=== PATIENT | female | born 1955 | race Caucasian/White ===

== ENCOUNTER 2024-09-16 21:32 | Inpatient (IN) | payer MEDICARE, MEDICAID, SELFPAY ==
--- OUTSIDE RECORDS SUMMARY | 2024-02-01 09:15 | XMS_ITS ---
Author Organization [facility] Address [address] [place] [id number] Care Team Providers Care Pad Making Machine Operator Name Role Phone Eli Dale Primary Care Provider Fern Quach Unavailable [phone] REASON FOR VISIT 3 month f/u HTN Social History Sex Assigned At : Social History Observation Description Sex Assigned At Female Encounters Encounter Location Date Provider Diagnosis Main [address] [place], [place] [id number] 02/01/2024 Eli Dale Plan Of Treatment Next Appt Details Provider Name:Amelia Boykin sg, 09/25/2024 03:00:00 PM, [address] [place] [address], [phone], Progress Notes * CATHERINE ElviahDOB: [birth year] (68 yo F)Acc No.[id number]:02/01/2024 Medical Note Patient: Dana AMES Provider: JULIA Mcwilliams :1955 A ge:68 Y S ex:Female Date:02/01/2024 Phone: Address:[address] [place], [place] [phone] Subjective: * Chief Complaints: * 1 . 3 month f/u HTN. * Medical History: Objective: * Vitals: Assessment: Plan: * Treatment: * Billing Information: * Visit Code: * Procedure Codes: * Electronic signature of JULIA Mcduffie on 09/18/2024 at 07:56 AM EDT Sign off status: Pending * Provider: JULIA Mcwilliams Date: 1 04/03/2023 Generated for Ventura benjamin/Haley/Ileneitting on: 0 09/18/2024 07:56 AM EDT
--- OUTSIDE RECORDS SUMMARY | 2024-02-14 08:45 | XMS_ITS ---
Author Organization [facility] Address [address] [place] [phone] Care Team Providers Care Sap Bw Architect Name Role Phone Eli Dale Primary Care Provider [phone] Fern Quach Unavailable [phone] Amelia Bautista Unavailable [phone] REASON FOR VISIT Rest #18-DO #20-O Social History Sex Assigned At : Social History Observation Description Sex Assigned At Female Encounters Encounter Location Date Provider Diagnosis Dental Main [address] [place] [phone] 02/14/2024 Amelia Bautista Plan Of Treatment Next Appt Details Provider Name:Amelia Boykin ord, 09/25/2024 03:00:00 PM, [address] [place] [address], [id number], Progress Notes * CATHERINE PamwallyhDOB: [birth year] (68 yo F)Acc No.[id number]:02/14/2024 Patient: Dana AMES Provider: Karen Bautista DDS :1955 A ge:68 Y S ex:Female Date:02/14/2024 Phone: Address:[address] [place] [phone] Pcp:Eli Dale Subjective: * Chief Complaints: * 1 . Rest #18-DO #20-O. * Medical History: Objective: * Vitals: Assessment: Plan: * Treatment: * Billing Information: * Visit Code: * Procedure Codes: * Electronic signature of Makayla Bautista DDS on 09/18/2024 at 07:56 AM EDT Sign off status: Pending * Provider: Karen Bautista DDS Date: 1 04/16/2023 Generated for Ventura benjamin/Haley/Kirt on: 0 09/18/2024 07:56 AM EDT
--- OUTSIDE RECORDS SUMMARY | 2024-04-03 06:15 | XMS_ITS ---
Author Organization [facility] Address [address] [place] [phone] Care Team Providers Care Notcher Name Role Phone Eli Dale Primary Care Provider Fern Quach Unavailable [phone] Amelia Bautista Unavailable [phone] REASON FOR VISIT Rest #18-DO, #20-O Social History Sex Assigned At : Social History Observation Description Sex Assigned At Female Encounters Encounter Location Date Provider Diagnosis Dental Main [address] [place] [phone] 04/03/2024 Amelia Bautista Plan Of Treatment Next Appt Details Provider Name:Amelia Boykin ord, 09/25/2024 03:00:00 PM, [address] [place] [address], [phone], Progress Notes * Elvia ALEXANDERhDOB: [birth year] (68 yo F)Acc No.[id number]:04/03/2024 Patient: Elvia AMESh Provider: Karen Bautista DDS :1955 A ge:68 Y S ex:Female Date:04/03/2024 Phone: Address:[address] [place] [phone] Pcp:Eli Dale Subjective: * Chief Complaints: * 1 . Rest #18-DO, #20-O. * Medical History: Objective: * Vitals: Assessment: Plan: * Treatment: * Billing Information: * Visit Code: * Procedure Codes: * Electronic signature of Makayla Bautista DDS on 09/18/2024 at 07:56 AM EDT Sign off status: Pending * Provider: Karen Bautista DDS Date: 0 04/03/2024 Generated for Ventura benjamin/Haley/Kirt on: 0 09/18/2024 07:56 AM EDT
[2024-09-16] VITALS (21 sets, daily range): BP systolic 97–163; BP diastolic 72–117; PULSE 65–112; TEMP 36.4; O2SAT 81–100; BMI 39.0
--- NOTE | 2024-09-16 21:55 | ECG_ITS ---
[facility] Test Date: 2024-09-16 Pat Name: LAURA ALEXANDER Department: Room: - Gender: Female Veneer Supervisor: : 1955 Requested By: [id number] Order Number: [id number] Reading MD: LORRAINE SETH M.D. Measurements Intervals Stryker Rate: 73 P: 53 WV: 194 QRS: 64 QRSD: 106 T: 90 QT: 376 QTc: 402 Interpretive Statements 1100 Sinus rhythm 4068 Nonspecific Twave abnormality 8102 Low QRS voltage in chest leads 9130 borderline ECG No previous ECG available for comparison Electronically Signed On 09-18-2024 6:58:23 EDT by LORRAINE SETH M.D.
--- NOTE | 2024-09-16 22:09 | XR_ITS ---
[facility] [place] [id number] Patient Name: LAURA ALEXANDER MRN: [id number] date: 1955 Sex: F Assigned Patient Location: ER Current Patient Location: ER Accession/Order Number: [id number] Exam Date: 09/16/2024 22:28 Report Date: 09/16/2024 22:29 At the request of: JOE YANEZ MD Procedure: XR chest 1V Plain film chest Single view HISTORY: Shortness of breath COMPARISON: None FINDINGS: SUPPORT DEVICES: None POSTSURGICAL CHANGES: None HEART: Cardiomegaly PULMONARY LYLA: Hilar vascular prominence MEDIASTINUM: Unremarkable LUNGS AND PLEURA: Perihilar and basilar groundglass parenchymal density and minimal pleural reactions. BONY STRUCTURES: Intact ADDITIONAL FINDINGS None XR/XR chest 1V IMPRESSION: CHF findings with small pleural effusions Impression dictated by: Javier Michaud M.D. 09/16/2024 10:29 PM Dictation Location: [facility] Electronically authenticated by: [id number] Y Date: 09/16/2024 22:29
--- NOTE | 2024-09-16 22:10 | ED.GENADUL1 ---
HPI HPI - General Adult General Chief complaint: Recheck/Abnormal Lab/Rx Stated complaint: SOB, CHEST PAIN Time Seen by Provider: 09/16/24 21:48 Source: patient Mode of arrival: walk-in Limitations: no limitations History of Present Illness HPI narrative: limited history. Assisted living patient transferred for shortness of breath. History of CHF. RA pulse ox 95%. Patient poor historian. Not in respiratory distress. Ex smoker. Per family she has one lung. Patient is not certain. will need to assisted living called for more information. Additional history. Family stop by and were concern patient appeared short of breath and they brought her in. No chest pain. As above, patient poor historian and not able to assist in the history Related Data Home Medications ?Medication ?Instructions ?Recorded ?Confirmed acetaminophen 500 mg tablet mg 09/16/24 apixaban 5 mg tablet (Eliquis) mg 09/16/24 cholecalciferol (vitamin D3) 50 09/16/24 mcg (2,000 unit) tablet diphenhydramine HCl 25 mg tablet mg 09/16/24 (Banophen) docusate sodium 100 mg capsule mg PO 09/16/24 flecainide 100 mg tablet mg 09/16/24 furosemide 20 mg tablet mg 09/16/24 levothyroxine 50 mcg tablet mcg 09/16/24 magnesium oxide mg 09/16/24 metoprolol succinate 25 mg mg PO 09/16/24 tablet,extended release 24 hr ondansetron HCl 4 mg tablet mg 09/16/24 potassium chloride 20 mEq meq PO 09/16/24 tablet,extended release(part/cryst) prazosin 2 mg capsule mg 09/16/24 risperidone 4 mg tablet mg 09/16/24 valsartan 40 mg tablet mg 09/16/24 venlafaxine 150 mg mg PO 09/16/24 capsule,extended release 24 hr venlafaxine 75 mg capsule,extended mg PO 09/16/24 release 24 hr Allergies Allergy/AdvReac Type Severity Reaction Status Date / Time Sulfa (Sulfonamide Allergy Unknown Verified 09/16/24 21:46 Antibiotics) Review of Systems ROS Status of ROS other (poor historian) [facility] Medical History (Updated 09/17/24 @ 04:01 by Thiago Souza MD) CHF (congestive heart failure) ?I50.9 - Heart failure, unspecified (ICD-10) COPD (chronic obstructive pulmonary disease) ?J44.9 - Chronic obstructive pulmonary disease, unspecified (ICD-10) Exam Constitutional Vital Signs, click to edit/add: Last Vital Signs Temp 97.5 F L 09/16/24 21:37 Pulse 70 09/17/24 02:31 Resp 26 H 09/17/24 02:31 BP 125/66 09/17/24 02:31 Pulse Ox 100 09/17/24 03:29 O2 Del Method Nasal Cannula 09/17/24 00:31 O2 Flow Rate 2 09/17/24 00:31 Common normals: no apparent distress, alert and well nourished HENMT Common normals: normocephalic and head/scalp atraumatic Eye Common normals: EOMs intact bilaterally and conjunctivae normal Respiratory Common normals: normal respiratory effort, no use of accessory muscles and clear to auscultation bilaterally Cardio Common normals: regular rate, regular rhythm, S1 normal heart sound and S2 normal heart sound GI Common normals: Normal to inspection, nondistended, normoactive bowel sounds present, soft to palpation and non-tender Extremity Common normals: normal to inspection and full ROM Neuro Common normals: oriented x3, CN's II-XII intact bilaterally, moves all extremities and no focal motor deficits Psych Appearance: grossly normal Course Vital Signs Vital signs: Vital Signs Temperature 97.5 F L 09/16/24 21:37 Pulse Rate 75 09/16/24 21:37 Respiratory Rate 18 09/16/24 21:37 Blood Pressure 163/117 H 09/16/24 21:37 Pulse Oximetry 97 09/16/24 21:37 Oxygen Delivery Method Room Air 09/16/24 21:37 Temperature 97.5 F L 09/16/24 21:37 Pulse Rate 70 09/17/24 02:31 Respiratory Rate 26 H 09/17/24 02:31 Blood Pressure 125/66 09/17/24 02:31 Pulse Oximetry 100 09/17/24 03:29 Oxygen Delivery Method Nasal Cannula 09/17/24 00:31 Oxygen Delivery Flow Rate 2 09/17/24 00:31 Medical Decision Making MDM Narrative Medical decision making narrative: patient has past history of CHF and is ex smoker. family concerned she was short of breath and brought her to the ER. Chest clear on exam. Troponin and BNP normal. Cxray per radiologist interpretation with finding of CHF. CT chest returned with findings enlarged heart size and mild interstitial edema. Exercise pulse ox 89% and when patient returned and sat on her bed her pulse ox decreased to 86% before it improved to 95% . No complaint of chest pain. Discussed with the hospitalist . Lasix ordered and patient accepted for admission Lab Data Labs: Lab Results 09/16/24 Range/Units 22:00 WBC 10.2 (4.0-11.0) 10^3/uL RBC 3.92 L (4.20-5.40) 10^6/uL Hgb 12.2 (12.0-16.0) g/dL Hct 38.1 (36.0-48.0) % MCV 97.2 (81.0-99.0) fL MCH 31.1 (26.7-34.0) pg MCHC 32.0 (29.9-35.2) g/dL RDW 13.2 (11.0-15.0) % Plt Count 253 (150-450) 10^3/uL MPV 9.8 (9.5-13.5) fL Neut % (Auto) 60.0 (43.0-75.0) % Lymph % (Auto) 32.5 (20.5-60.0) % Hodgeman % (Auto) 6.4 (1.7-12.0) % Eos % (Auto) 0.5 L (0.9-7.0) % Baso % (Auto) 0.3 (0.2-2.0) % Neut # (Auto) 6.1 (1.4-6.5) 10^3/uL Lymph # (Auto) 3.3 (1.2-3.8) 10^3/uL Hodgeman # (Auto) 0.7 (0.3-0.8) 10^3/uL Eos # (Auto) 0.1 (0.0-0.7) 10^3/uL Baso # (Auto) 0.0 (0.0-0.1) 10^3/uL Abs Immat Gran (auto) 0.03 (0.00-0.03) 10^3/uL Imm/Tot Granulo (auto) 0.3 (0.0-0.5) % D-Dimer 0.27 (<=0.59) mg/L FEU Sodium 140 (136-145) mmol/L Potassium 4.2 (3.5-5.1) mmol/L Chloride 101 (98-107) mmol/L Carbon Dioxide 33.7 H (21.0-32.0) mmol/L Anion Gap 9.5 BUN 26.0 H (7.0-18.0) mg/dL Creatinine 1.01 (0.55-1.02) mg/dL Est GFR ( Amer) >60 (>=60 mL/min/1.73m^2) Est GFR (Non-Af Amer) 55 L (>=60 mL/min/1.73m^2) BUN/Creatinine Ratio 25.7 Glucose 110 H (74-106) mg/dL Calcium 9.8 (8.5-10.1) mg/dL Troponin I High Sens 8.1 (4.0-51.3) pg/mL NT-Pro-B Natriuret Pep 543.0 (<=900.0) pg/mL Discharge Plan Discharge Chief Complaint: Recheck/Abnormal Lab/Rx Clinical Impression: CHF (congestive heart failure) Patient Disposition: Admitted as Observation
[2024-09-16 22:19] LABS: Hematocrit 38.1 % (36.0-48.0); Hemoglobin 12.2 g/dL (12.0-16.0); Immature Granulocytes Abs Auto 0.03 10^3/uL (0.00-0.03); Immature Granulocytes Pct Auto 0.3 % (0.0-0.5); Lymphocytes Absolute Auto 3.3 10^3/uL (1.2-3.8); Mean Corpuscular HGB Conc 32.0 g/dL (29.9-35.2); Mean Corpuscular Hemoglobin 31.1 pg (26.7-34.0); Mean Corpuscular Volume 97.2 fL (81.0-99.0); Platelet Count 253 10^3/uL (150-450); Red Blood Count 3.92 10^6/uL (4.20-5.40); White Blood Count 10.2 10^3/uL (4.0-11.0)
[2024-09-16 22:42] LABS: Anion Gap 9.5; Blood Urea Nitrogen 26.0 mg/dL (7.0-18.0); Calcium 9.8 mg/dL (8.5-10.1); Carbon Dioxide 33.7 mmol/L (21.0-32.0); Chloride 101 mmol/L (98-107); Estimated GFR (African America >60 (>=60 mL/min/1.73m^2); Estimated GFR (Non-African Ame 55 (>=60 mL/min/1.73m^2); Glucose 110 mg/dL (74-106); NT Pro B Type Natriuretic Pept 543.0 pg/mL (<=900.0); Potassium 4.2 mmol/L (3.5-5.1); Sodium 140 mmol/L (136-145)
[2024-09-17] VITALS (56 sets, daily range): BP systolic 121–175; BP diastolic 60–94; PULSE 66–91; TEMP 36.4–36.8; O2SAT 90–100; BMI 41.9
--- NOTE | 2024-09-17 03:53 | CA_ITS ---
Patient Name: LAURA ALEXANDER MR#: [id number] : 1955 Exam Date: 09/17/2024 Ordering Doctor: JUSTIN CARRASCO ECHOCARDIOGRAM REPORT PROCEDURE: CA ECHO DOPPLER COMPLETE INDICATIONS: CHF COMPARISON: None. DESCRIPTION: COMPLETE ECHOCARDIOGRAM Real-time transthoracic echocardiography with 2D, M-mode, spectral and color flow Doppler performed. QUALITY: Technical quality was limited. LEFT VENTRICLE: Mild dilatation. Moderate concentric left ventricular hypertrophy. Global left ventricular systolic function is normal. LV EF: Visual estimation of left ventricular ejection fraction is 55%. DIASTOLIC: Diastolic function is indeterminate. ATRIAL SEPTUM: LEFT ATRIUM: Moderate dilatation. RIGHT ATRIUM: Moderate dilatation. RIGHT VENTRICLE: Mild dilatation. Normal right ventricular systolic function. TRICUSPID VALVE: Normal mobility and thickness. No stenosis with trivial regurgitation. No evidence of pulmonary hypertension. RVSP 32mmHg. MITRAL VALVE: Mildly thickened with normal mobility. No evidence of mitral valve stenosis. Mild mitral annular calcification. Trivial mitral regurgitation. AORTIC VALVE: Normal trileaflet appearance. No visible sclerosis. Normal leaflet mobility. No evidence of aortic valve stenosis. No aortic regurgitation. AORTIC ROOT: Normal diameter and appearance, measuring 3.0 cm. The ascending aorta is normal in size measuring 3.0 cm. PULMONIC VALVE: Normal thickness and mobility. No stenosis. Trivial regurgitation. PERICARDIUM: No evidence of pericardial effusion. Anterior echogenic material seen likely fat pad. IVC: Collapses with inspiration. Normal size. PLEURA: CONCLUSION: 1. Moderate concentric left ventricular hypertrophy with normal systolic function. Estimated LVEF is 55%. 2. Mildly dilated right ventricle with normal systolic function. 3. Moderate biatrial dilatation. 4. No significant valvular dysfunction. 5. Normal right-sided pressures. 6. Echogenic material is seen anterior to the right ventricular free wall likely representing pericardial fat pad. Adult Echocardiography Procedure Report Left Ventricle LVEDD (3.7 - 5.6 cm): 5.18 cm LVESD (2.2 - 4.0 cm): 3.73 cm LVIVS thickness (0.6 - 1.2 cm): 1.17 cm LVPW thickness (0.5 - 1.0 cm): 1.41 cm e': 0.09 m/s E - e': 9.34 LVOT Max Gradient: 6.17 mm[Hg] LVOT Area (cm2): 1.24 m/s Peak Velocity (LVOT): 1.24 m/s Mean Velocity (LVOT): 0.87 m/s LVOT Diameter 2.15 cm Left Atrium LA Volume Index (2D A2C): 69.85 ml/m2 Left Atrium Systolic Dimension: 5.15 cm Mitral Valve MV E to A Ratio: 1.48 Mitral Valve A-Wave Peak Velocity: 0.56 m/s Mitral Valve E-Wave Peak Velocity: 0.83 m/s Right Ventricle RV Internal Diastolic Dimension: 4.41 cm Aorta AO Root Diam: 2.96 cm Ascending Ao Diam: 3.02 cm Aortic Valve AoV Area (Peak Pipo): 3.53 cm2, 3.53 cm2 AoV Area (VTI): 3.51 cm2, 3.51 cm2 Peak Velocity(Antegrade Flow): 1.27 m/s Peak Gradient(Antegrade Flow): 6.48 mm[Hg] Mean Velocity(Antegrade Flow): 0.91 m/s Mean Gradient(Antegrade Flow): 3.63 mm[Hg] Velocity Time Integral: 26.51 cm Tricuspid Valve Peak Velocity (Regurgitant Flow): 1.60 m/s, 2.68 m/s Pulmonic Valve Peak Velocity: 1.05 m/s Peak Gradient: 4.31 mm[Hg], 4.49 mm[Hg] Right Atrium Right Atrium Systolic Pressure: 67.55 ml, 67.55 ml Dictated by: Moy Arechiga M.D. on 09/17/2024 at 16:39 Approved by: Moy Arechiga M.D. on 09/17/2024 at 16:46
[2024-09-17] MEDS: FUROSEMIDE 40 MG/4 ML VIAL IVP (04:07)
[2024-09-17] MEDS: DEXAMETHASONE SOD PHOS (PF) 10 MG/ML VIAL IV (04:56)
[2024-09-17] MEDS: ASPIRIN 81 MG TAB.CHEW 162 MG PO (04:56)
--- NOTE | 2024-09-17 09:18 | SWNOTE1 ---
SW and I met with pt to discuss d/c needs and consult for transportation concern. Pt is from [facility] assisted living in [place]. She uses a walker to get around. Pt voiced the AL is okay but she has had some issues with the people there. SW and I encouraged her to voice those concerns to the staff and even someone higher up. I asked pt to tell me about her issues with transportation. Pt voiced she does not have the money to get transportation. SW asked pt if the AL has transportation available, pt voiced sometimes it depends. SW also asked pt if her family was available to transport her. She voiced her daughter works and her other family does not care about her. SW also suggested that pt's Medicaid may be able to help with transportation. Pt voiced understanding. Pt does not have further concerns for d/c at this time. SW to follow as needed.
[2024-09-17] MEDS: IPRATROPIUM/ALBUTEROL SULFATE 3 ML AMPUL.NEB IH ×3 (09:28→23:11)
--- NOTE | 2024-09-17 09:55 | CM.NOTE ---
Rounds made with Dr. Jj, pt having cardiac echo. Dr. Jj will come back to see pt.
--- NOTE | 2024-09-17 12:20 | PM.IMHP1 ---
Internal Medicine - H&P: HPI History of Present Illness Chief complaint: CHF Narrative: Please be aware pt was accepted by night team hospitalist. I am seeing this pt for the first time today after she was admitted. This is a 68 y.o female with past medical Hx of Depression, hypothyroidism, anxiety, Systolic and diastolic CHF, cervicalgia, GERD, Schizophrenia, COPD, here from assisted living. Hx obtained from pt's chart, ED note, and from her even though it was somewhat limited due to her being a poor historian, states that she was trying to clean her house over the last 2 weeks however she has been getting really winded and short of breath easily. She denies any chest pain or nausea or vomiting or diaphoresis. She denies any cough or fever or chills. She was very anxious during encounter stating that she is not able to catch her breath over the last 2 weeks and that has been getting worse. She is not on oxygen. CBC and CMP MP were not significant. proBNP was 540. Troponin x 2 were negative. Chest x-ray was showing mild interstitial edema along with a CT chest with contrast that also showed pulmonary edema. EKG x 2 did not show any acute ischemic changes. Patient did have desaturation to 86-89% on room air and then improved to 95%. Patient was admitted under hospitalist service for further workup and management. During the encounter patient was saturating 9% on room air. Not in any respiratory distress but she was anxious Review of Systems ROS Status of ROS 10 or more systems reviewed and unremarkable except as noted in history and below [facility] Medical History (Updated 09/17/24 @ 12:33 by Alexander Jj MD) Major depressive disorder, recurrent, unspecified ?F33.9 - Major depressive disorder, recurrent, unspecified (ICD-10) Hypothyroidism, unspecified ?E03.9 - Hypothyroidism, unspecified (ICD-10) Chronic venous hypertension (idiopathic) without complications of right lower extremity ?I87.301 - Chronic venous hypertension (idiopathic) without complications of right lower extremity (ICD-10) Anxiety disorder, unspecified ?F41.9 - Anxiety disorder, unspecified (ICD-10) Anemia, unspecified ?D64.9 - Anemia, unspecified (ICD-10) Acute on chronic combined systolic (congestive) and diastolic (congestive) heart failure ?I50.43 - Acute on chronic combined systolic (congestive) and diastolic (congestive) heart failure (ICD-10) Unspecified psychosis not due to a substance or known physiological condition ?F29 - Unspecified psychosis not due to a substance or known physiological condition (ICD-10) Cervicalgia ?M54.2 - Cervicalgia (ICD-10) Adult night terror ?F51.4 - Sleep terrors [night terrors] (ICD-10) Gastro-esophageal reflux disease without esophagitis ?K21.9 - Gastro-esophageal reflux disease without esophagitis (ICD-10) Schizophrenia, unspecified ?F20.9 - Schizophrenia, unspecified (ICD-10) Schizoaffective disorder, bipolar type ?F25.0 - Schizoaffective disorder, bipolar type (ICD-10) Rectal abscess ?K61.1 - Rectal abscess (ICD-10) CHF (congestive heart failure) ?I50.9 - Heart failure, unspecified (ICD-10) COPD (chronic obstructive pulmonary disease) ?J44.9 - Chronic obstructive pulmonary disease, unspecified (ICD-10) Social History (Updated 09/17/24 @ 05:02 by Sujata Pink RN) Within the past year, how often did you have a drink containing alcohol: never Score interpretation: A score less than 3 is consistent with normal alcohol consumption. Smoking status: Current some day smoker Non-prescribed substance use: denies use Highest level of school completed/degree received: high school graduate Little interest or pleasure in doing things: not at all Feeling down, depressed, or hopeless: not at all Gender Identity: female Meds Home Medications and Allergies Home Medications ?Medication ?Instructions ?Recorded ?Confirmed ?Type acetaminophen 500 mg tablet 500 mg PO Q8H 09/16/24 09/17/24 History apixaban 5 mg tablet (Eliquis) 5 mg PO Q12H 09/16/24 09/17/24 History cholecalciferol (vitamin D3) 50 50 mcg PO .QD 09/16/24 09/17/24 History mcg (2,000 unit) tablet diphenhydramine HCl 25 mg tablet 25 mg PO BID ANXIETY 09/16/24 09/17/24 History (Banophen) docusate sodium 100 mg capsule 100 mg PO .QD PRN constipation 09/16/24 09/17/24 History flecainide 100 mg tablet 100 mg PO Q12H 09/16/24 09/17/24 History furosemide 20 mg tablet 20 mg PO .QD 09/16/24 09/17/24 History levothyroxine 50 mcg tablet 50 mcg PO .QD 09/16/24 09/17/24 History magnesium oxide 250 mg PO .QD 09/16/24 09/17/24 History metoprolol succinate 25 mg 12.5 mg PO .QD 09/16/24 09/17/24 History tablet,extended release 24 hr ondansetron HCl 4 mg tablet 4 mg PO Q8H PRN nausea and vomiting 09/16/24 09/17/24 History prazosin 2 mg capsule 2 mg PO .QHS 09/16/24 09/17/24 History risperidone 4 mg tablet 4 mg PO .QHS 09/16/24 09/17/24 History valsartan 40 mg tablet 40 mg PO .QD 09/16/24 09/17/24 History venlafaxine 150 mg 150 mg PO DAILY 09/16/24 09/17/24 History capsule,extended release 24 hr venlafaxine 75 mg capsule,extended 75 mg PO DAILY 09/16/24 09/17/24 History release 24 hr albuterol sulfate 90 mcg/actuation 1 inh inhalation Q4H PRN shortness 09/17/24 09/17/24 History aerosol inhaler (Ventolin HFA) of breath or wheezing benzonatate 200 mg capsule 200 mg PO Q8H PRN cough 09/17/24 09/17/24 History diclofenac sodium 1 % topical gel 2 g topical Q8H PRN pain 09/17/24 09/17/24 History fluticasone fur. 100 mcg-umeclid 1 inh inhalation DAILY 09/17/24 09/17/24 History 62.5 mcg-vilant 25 mcg inhalat.powder (Trelegy Ellipta) hydroxyzine HCl 25 mg tablet 25 mg PO Q24H PRN anxiety 09/17/24 09/17/24 History loperamide 2 mg tablet 2 mg PO Q6H PRN loose stool 09/17/24 09/17/24 History (Anti-Diarrheal (loperamide)) nystatin 100,000 unit/gram topical 1 applic topical Q8H PRN IRRITATION 09/17/24 09/17/24 History powder (Nyamyc) tramadol 50 mg tablet 50 mg PO Q6H PRN pain 09/17/24 09/17/24 History Allergies Allergy/AdvReac Type Severity Reaction Status Date / Time Sulfa (Sulfonamide Allergy Unknown Verified 09/16/24 21:46 Antibiotics) Exam Narrative Exam Narrative: Constitutional: no apparent distress, alert and well nourished, anxious, cooperative [facility] Common normals: normocephalic and head/scalp atraumatic Eye Common normals: EOMs intact bilaterally and conjunctivae normal Neck: Supple, no JVD, no lymphadenopathy, no thyromegaly Respiratory Common normals: Decreased bilateral air entry with mild Rales bilaterally. No wheezes. Patient saturating well on room air not using fisher hand line muscles. Cardio Common normals: regular rate, regular rhythm, S1 normal heart sound and S2 normal heart sound GI Common normals: Normal to inspection, nondistended, normoactive bowel sounds present, soft to palpation and non-tender Extremity Common normals: normal to inspection and full ROM Neuro Common normals: oriented x3, CN's II-XII intact bilaterally, moves all extremities and no focal motor deficits Psych Anxious Constitutional Vital Signs, click to edit/add: Last Vital Signs Temp 98.0 F 09/17/24 07:44 Pulse 79 09/17/24 11:59 Resp 16 09/17/24 09:29 BP 171/75 H 09/17/24 07:44 Pulse Ox 94 L 09/17/24 09:29 O2 Del Method Room Air 09/17/24 09:29 O2 Flow Rate 2 09/17/24 07:44 Internal Medicine - H&P: Reslt Labs Labs: Short CBC 09/16/24 Range/Units 22:00 WBC 10.2 (4.0-11.0) 10^3/uL Hgb 12.2 (12.0-16.0) g/dL Hct 38.1 (36.0-48.0) % Plt Count 253 (150-450) 10^3/uL BMP 09/16/24 22:00 Sodium 140 Potassium 4.2 Chloride 101 Carbon Dioxide 33.7 H BUN 26.0 H Creatinine 1.01 Glucose 110 H Calcium 9.8 Assessment and Plan Assessment and Plan (1) Acute hypoxic respiratory failure: (2) Acute exacerbation of CHF (congestive heart failure): (3) COPD exacerbation: Plan Acute hypoxic respiratory failure in the setting of CHF exacerbation (systolic and diastolic, NYHA class II stage C ) and COPD exacerbation May need higher level of care Anxiety, Schizophrenia, depression - Patient admitted to medical floor 30 - Starting IV Lasix 20 mg twice daily -Daily weights -Strict I/Os - Start methylprednisolone 40 mg every 12 hours - Started DuoNeb treatment 4 times daily - Cardiology consult - Echo pending -May need oxygen assessment on discharge -PT/OT eval -Eliquis for DVT PPx (therapeutic) -Full code -Discussed the plan with the pt. I reconciled her meds from assisted living. I answered her questions
--- NOTE | 2024-09-17 12:35 | SWNOTE1 ---
Important Message from Medicare reviewed and discussed with patient. Pt. verbalized understanding and signed the form. Original given to patient and copy placed in patient?s chart.
[2024-09-17] MEDS: PANTOPRAZOLE SODIUM 40 MG VIAL IV (14:06)
[2024-09-17] MEDS: FLECAINIDE ACETATE 50 MG TABLET 100 MG PO ×2 (14:07→21:10)
[2024-09-17] MEDS: HYDROXYZINE HCL 25 MG TABLET PO (14:07)
[2024-09-17] MEDS: ACETAMINOPHEN 325 MG TABLET 650 MG PO (14:07)
[2024-09-17] MEDS: VENLAFAXINE HCL ER 150 MG CAPSULE PO (14:07)
[2024-09-17] MEDS: MAGNESIUM OXIDE 400 MG TABLET PO (14:07)
[2024-09-17] MEDS: VENLAFAXINE HCL ER 75 MG CAPSULE PO (14:07)
[2024-09-17] MEDS: METOPROLOL SUCCINATE 25 MG TAB.ER.24H 12.5 MG PO (14:07)
[2024-09-17] MEDS: APIXABAN 5 MG TABLET PO ×2 (14:07→21:10)
--- NOTE | 2024-09-17 14:42 | SWNOTE1 ---
SW stopped in to speak with pt about recommendations from physical therapy. SNF or HH. Pt voiced she had a hard time with therapy because of walker. Pt also voiced that she does have a therapist that comes to see her once a week at [facility]. SW to check on this. HH and rehab were explained to pt. Pt had voiced that she is not sure she wants to go to rehab and does not really want to go skilled anywhere. Her goal is to return to [facility] and maybe have HH come in, but possibly just continuing the therapist at [facility] coming in to see her. SW to check in on pt daily to see how she is doing and the recommendations at discharge.
--- NOTE | 2024-09-17 14:52 | SWNOTE1 ---
SW spoke to nurse Promise, pt was upset in room due to conversation about rehab VS HH. Pt was feeling anxiety due to conversation and did not want to speak with SW again today. Nurse did request information from AL. It does show that [facility] does have a physcial therapist that comes in to see pt.
[2024-09-17] MEDS: LOSARTAN POTASSIUM 25 MG TABLET PO (16:57)
[2024-09-17] MEDS: FUROSEMIDE 20 MG/2 ML VIAL IVP (16:57)
--- NOTE | 2024-09-17 17:15 | PM.CACN ---
History of Present Illness History of Present Illness Consult date: 09/17/24 Requesting physician: Sam Starks Consult reason: congestive heart failure Chief complaint: CHF Narrative: 68-year-old lady with past medical history of hypothyroidism anxiety disorder heart failure and COPD was admitted to the hospital from an assisted living facility for shortness of breath that has been progressively worsening over the past 2 to 3 weeks. Presentation to the ED she was noted to be slightly hypoxemic with sats at 86 to 89% and was noted to have no evidence of ischemia on initial EKG. Blood workup revealed normal troponin levels with a BNP also within normal limits. CT scan revealed no evidence of PE but mild interstitial edema. Patient was given Lasix 40 mg and bronchodilators and subsequently admitted. Patient has diuresed and her O2 requirements have improved with saturating above 92% on room air Review of Systems ROS Status of ROS 10 or more systems reviewed and unremarkable except as noted in history and below PFSH PENDING SALE TO [facility] Medical History Major depressive disorder, recurrent, unspecified ?F33.9 - Major depressive disorder, recurrent, unspecified (ICD-10) Hypothyroidism, unspecified ?E03.9 - Hypothyroidism, unspecified (ICD-10) Chronic venous hypertension (idiopathic) without complications of right lower extremity ?I87.301 - Chronic venous hypertension (idiopathic) without complications of right lower extremity (ICD-10) Anxiety disorder, unspecified ?F41.9 - Anxiety disorder, unspecified (ICD-10) Anemia, unspecified ?D64.9 - Anemia, unspecified (ICD-10) Acute on chronic combined systolic (congestive) and diastolic (congestive) heart failure ?I50.43 - Acute on chronic combined systolic (congestive) and diastolic (congestive) heart failure (ICD-10) Unspecified psychosis not due to a substance or known physiological condition ?F29 - Unspecified psychosis not due to a substance or known physiological condition (ICD-10) Cervicalgia ?M54.2 - Cervicalgia (ICD-10) Adult night terror ?F51.4 - Sleep terrors [night terrors] (ICD-10) Gastro-esophageal reflux disease without esophagitis ?K21.9 - Gastro-esophageal reflux disease without esophagitis (ICD-10) Schizophrenia, unspecified ?F20.9 - Schizophrenia, unspecified (ICD-10) Schizoaffective disorder, bipolar type ?F25.0 - Schizoaffective disorder, bipolar type (ICD-10) Rectal abscess ?K61.1 - Rectal abscess (ICD-10) CHF (congestive heart failure) ?I50.9 - Heart failure, unspecified (ICD-10) COPD (chronic obstructive pulmonary disease) ?J44.9 - Chronic obstructive pulmonary disease, unspecified (ICD-10) Social History Within the past year, how often did you have a drink containing alcohol: never Score interpretation: A score less than 3 is consistent with normal alcohol consumption. Smoking status: Current some day smoker Non-prescribed substance use: denies use Highest level of school completed/degree received: high school graduate Little interest or pleasure in doing things: not at all Feeling down, depressed, or hopeless: not at all Gender Identity: female Meds Home Medications and Allergies Home Medications ?Medication ?Instructions ?Recorded ?Confirmed ?Type acetaminophen 500 mg tablet 500 mg PO Q8H 09/16/24 09/17/24 History apixaban 5 mg tablet (Eliquis) 5 mg PO Q12H 09/16/24 09/17/24 History cholecalciferol (vitamin D3) 50 50 mcg PO .QD 09/16/24 09/17/24 History mcg (2,000 unit) tablet diphenhydramine HCl 25 mg tablet 25 mg PO BID ANXIETY 09/16/24 09/17/24 History (Banophen) docusate sodium 100 mg capsule 100 mg PO .QD PRN constipation 09/16/24 09/17/24 History flecainide 100 mg tablet 100 mg PO Q12H 09/16/24 09/17/24 History furosemide 20 mg tablet 20 mg PO .QD 09/16/24 09/17/24 History levothyroxine 50 mcg tablet 50 mcg PO .QD 09/16/24 09/17/24 History magnesium oxide 250 mg PO .QD 09/16/24 09/17/24 History metoprolol succinate 25 mg 12.5 mg PO .QD 09/16/24 09/17/24 History tablet,extended release 24 hr ondansetron HCl 4 mg tablet 4 mg PO Q8H PRN nausea and vomiting 09/16/24 09/17/24 History prazosin 2 mg capsule 2 mg PO .QHS 09/16/24 09/17/24 History risperidone 4 mg tablet 4 mg PO .QHS 09/16/24 09/17/24 History valsartan 40 mg tablet 40 mg PO .QD 09/16/24 09/17/24 History venlafaxine 150 mg 150 mg PO DAILY 09/16/24 09/17/24 History capsule,extended release 24 hr venlafaxine 75 mg capsule,extended 75 mg PO DAILY 09/16/24 09/17/24 History release 24 hr albuterol sulfate 90 mcg/actuation 1 inh inhalation Q4H PRN shortness 09/17/24 09/17/24 History aerosol inhaler (Ventolin HFA) of breath or wheezing benzonatate 200 mg capsule 200 mg PO Q8H PRN cough 09/17/24 09/17/24 History diclofenac sodium 1 % topical gel 2 g topical Q8H PRN pain 09/17/24 09/17/24 History fluticasone fur. 100 mcg-umeclid 1 inh inhalation DAILY 09/17/24 09/17/24 History 62.5 mcg-vilant 25 mcg inhalat.powder (Trelegy Ellipta) hydroxyzine HCl 25 mg tablet 25 mg PO Q24H PRN anxiety 09/17/24 09/17/24 History loperamide 2 mg tablet 2 mg PO Q6H PRN loose stool 09/17/24 09/17/24 History (Anti-Diarrheal (loperamide)) nystatin 100,000 unit/gram topical 1 applic topical Q8H PRN IRRITATION 09/17/24 09/17/24 History powder (Nyamyc) tramadol 50 mg tablet 50 mg PO Q6H PRN pain 09/17/24 09/17/24 History Allergies Allergy/AdvReac Type Severity Reaction Status Date / Time Sulfa (Sulfonamide Allergy Unknown Verified 09/16/24 21:46 Antibiotics) Exam Narrative Exam Narrative: Constitutional: no apparent distress, alert and well nourished, anxious, cooperative [facility] Common normals: normocephalic and head/scalp atraumatic Eye Common normals: EOMs intact bilaterally and conjunctivae normal Neck: Supple, no JVD, no lymphadenopathy, no thyromegaly Respiratory Common normals: Decreased bilateral air entry with mild Rales bilaterally. No wheezes. Patient saturating well on room air not using shipping clerk/admin muscles. Cardio Common normals: regular rate, regular rhythm, S1 normal heart sound and S2 normal heart sound GI Common normals: Normal to inspection, nondistended, normoactive bowel sounds present, soft to palpation and non-tender Extremity Common normals: normal to inspection and full ROM Neuro Common normals: oriented x3, CN's II-XII intact bilaterally, moves all extremities and no focal motor deficits Psych Anxious Constitutional Vital Signs, click to edit/add: Last Vital Signs Temp 98.0 F 09/17/24 07:44 Pulse 72 09/17/24 16:58 Resp 20 09/17/24 16:58 BP 154/84 H 09/17/24 16:58 Pulse Ox 96 09/17/24 16:58 O2 Del Method Room Air 09/17/24 16:58 O2 Flow Rate 2 09/17/24 07:44 Results Labs and Meds Lab results: CBC 09/16/24 Range/Units 22:00 WBC 10.2 (4.0-11.0) 10^3/uL RBC 3.92 L (4.20-5.40) 10^6/uL Hgb 12.2 (12.0-16.0) g/dL Hct 38.1 (36.0-48.0) % Plt Count 253 (150-450) 10^3/uL Neut # (Auto) 6.1 (1.4-6.5) 10^3/uL Lymph # (Auto) 3.3 (1.2-3.8) 10^3/uL [place] # (Auto) 0.7 (0.3-0.8) 10^3/uL Eos # (Auto) 0.1 (0.0-0.7) 10^3/uL Baso # (Auto) 0.0 (0.0-0.1) 10^3/uL Comprehensive Metabolic Panel 09/16/24 Range/Units 22:00 Sodium 140 (136-145) mmol/L Potassium 4.2 (3.5-5.1) mmol/L Chloride 101 (98-107) mmol/L Carbon Dioxide 33.7 H (21.0-32.0) mmol/L BUN 26.0 H (7.0-18.0) mg/dL Creatinine 1.01 (0.55-1.02) mg/dL Glucose 110 H (74-106) mg/dL Calcium 9.8 (8.5-10.1) mg/dL Intake and Output 09/17/24 09/17/24 09/17/24 07:59 15:59 23:59 Intake Total 1360 / 1360 Output Total 550 / 550 900 / 900 Balance -550 / -550 460 / 460 Intake: Oral 1360 / 1360 Output: Urine 550 / 550 900 / 900 Other: # Unmeasured Voids 1 Weight 107.4 kg Assessment and Plan Assessment and Plan (1) Acute hypoxic respiratory failure: Assessment and Plan: Current episode of shortness of breath is most likely related to COPD exacerbation rather than heart failure issue given that her BNP levels are within normal limits and there is no evidence of ischemia on EKG or on blood work. At this time I would favor continuing with bronchodilators and see how she responds (2) Acute exacerbation of CHF (congestive heart failure): Assessment and Plan: Can continue with outpatient management of her diastolic heart failure. Her echocardiogram reveals normal EF (3) COPD exacerbation: Assessment and Plan: Continue with steroids and bronchodilators
[2024-09-17] MEDS: METHYLPREDNISOLONE SOD SUCC PF 40 MG/ML VIAL IVP (21:09)
[2024-09-17] MEDS: DIPHENHYDRAMINE HCL 25 MG CAPSULE PO (21:10)
[2024-09-17] MEDS: FUROSEMIDE 20 MG TABLET PO (23:09)
[2024-09-17] MEDS: BUDESONIDE 0.5 MG/2 ML AMPULE NEB IH (23:11)
[2024-09-18] VITALS (19 sets, daily range): BP systolic 113–155; BP diastolic 66–77; PULSE 65–93; TEMP 36.3–36.8; O2SAT 92–96
--- NOTE | 2024-09-18 04:00 | ECG_ITS ---
[facility] Test Date: 2024-09-18 Pat Name: ALURA ALEXANDER Department: Room: [facility] Gender: Female Chlorination Operator: : 1955 Requested By: [id number] Order Number: [id number] Reading MD: LORRAINE SETH M.D. Measurements Intervals [place] Rate: 80 P: 33 PA: 204 QRS: 41 QRSD: 125 T: 60 QT: 412 QTc: 476 Interpretive Statements SINUS RHYTHM WITH SINUS ARRHYTHMIA MODERATE T-WAVE ABNORMALITY, CONSIDER ANTERIOR ISCHEMIA [-0.1+ mV T WAVE IN V3/V4] Abnormal ECG Compared to ECG 09/16/2024 21:55:12 Possible ischemia now present Electronically Signed On 09-18-2024 7:08:51 EDT by LORRAINE SETH M.D.
[2024-09-18] MEDS: IPRATROPIUM/ALBUTEROL SULFATE 3 ML AMPUL.NEB IH ×4 (04:02→22:00)
[2024-09-18 05:36] LABS: Hematocrit 38.2 % (36.0-48.0); Hemoglobin 12.4 g/dL (12.0-16.0); Immature Granulocytes Abs Auto 0.07 10^3/uL (0.00-0.03); Immature Granulocytes Pct Auto 0.4 % (0.0-0.5); Lymphocytes Absolute Auto 1.0 10^3/uL (1.2-3.8); Mean Corpuscular HGB Conc 32.5 g/dL (29.9-35.2); Mean Corpuscular Hemoglobin 31.2 pg (26.7-34.0); Mean Corpuscular Volume 96.0 fL (81.0-99.0); Platelet Count 283 10^3/uL (150-450); Red Blood Count 3.98 10^6/uL (4.20-5.40); White Blood Count 16.3 10^3/uL (4.0-11.0)
[2024-09-18] MEDS: LEVOTHYROXINE SODIUM 25 MCG TABLET 50 MCG PO (05:37)
[2024-09-18 06:24] LABS: Alanine Aminotransferase 23 U/L (14-59); Albumin Globulin Ratio 0.9; Albumin Level 3.3 g/dL (3.4-5.0); Alkaline Phosphatase 123 U/L (46-116); Anion Gap 15.8; Aspartate Amino Transferase 10 U/L (15-37); Blood Urea Nitrogen 26.0 mg/dL (7.0-18.0); Calcium 9.7 mg/dL (8.5-10.1); Carbon Dioxide 28.7 mmol/L (21.0-32.0); Chloride 100 mmol/L (98-107); Estimated GFR (African America 58 (>=60 mL/min/1.73m^2); Estimated GFR (Non-African Ame 48 (>=60 mL/min/1.73m^2); Globulin 3.8 g/dL; Glucose 180 mg/dL (74-106); Potassium 4.5 mmol/L (3.5-5.1); Sodium 140 mmol/L (136-145); Total Protein 7.1 g/dL (6.4-8.2)
[2024-09-18 06:30] LABS: Magnesium 2.2 mg/dL (1.8-2.4)
--- OUTSIDE RECORDS SUMMARY | 2024-09-18 07:56 | XMS_ITS | Encounter Summary ---
Author Organization [facility] Address [address] [place] [address] Care Team Providers Care Tag Press Operator Name Role Phone Trevon Holt MD Unavailable Elian Magallon MD Primary Care Provider Unavailabl e Encounter Details Date Type Department Care Team (Late st Contact Info) Description 03/08/2024 Abstract [facility] [address] [place] [address] [place] [phone] Unallocated, Noms Provider, [address] [place], [place] [phone] Social History Tobacco Use Types Packs/Day Years Used Date Smoking Tobacco: Former Cigarettes Alcohol Use Standard Drinks/Week Comments Never 0 (1 standard drink = 0.6 oz pure alcohol) Caffeine intake: 2-3 cups per day soda/pop, coffee Comments Unknown Sex and Gender Information Value Date Recorded Sex Assigned at Not on file Legal Sex Female 6:47 PM EDT Gender Identity Not on file Sexual Orientation Not on file documented as of this encounter Plan of Treatment Not on file documented as of this encounter Visit Diagnoses Not on filedocumented in this encounter Care Teams Tag Press Operator Relationship Specialty Start Date End Date Elian Magallon MD [address] [place] [address] PCP - General Psychiatry 09/22/22 Trevon Holt MD [address] [place], [place] [id number] Referring Physician Internal Medicine 09/02/22 documented as of this encounter
--- OUTSIDE RECORDS SUMMARY | 2024-09-18 07:56 | XMS_ITS | Encounter Summary ---
Author Organization [facility] Address [address] [place] [address] Care Team Providers Care Direct Marketing Manager Name Role Phone Trevon Holt MD Unavailable Elian Magallon MD Primary Care Provider Unavailabl e Encounter Details Date Type Department Care Team (Late st Contact Info) Description 11/09/2022 Abstract [facility] [address] [facility] 110 [place] [phone] Marion Oleary MD [address] [facility] 110 [place] [address] Social History Tobacco Use Types Packs/Day Years [...] on filedocumented in this encounter Care Teams Direct Marketing Manager Relationship Specialty Start Date End Date Elian Magallon MD [address] [place] [address] PCP - General Psychiatry 09/22/22 Trevon Holt MD [address] [place], [place] [phone] Referring Physician Internal Medicine 09/02/22 documented as of this encounter
--- OUTSIDE RECORDS SUMMARY | 2024-09-18 07:56 | XMS_ITS | Encounter Summary ---
Author Organization [facility] Address [address] [place] [address] Care Team Providers Care Bilingual Customer Service Specialist Name Role Phone Trevon Holt MD Unavailable Elian Magallon MD Primary Care Provider Unavailabl e Encounter Details Date Type Department Care Team (Late st Contact Info) Description 05/30/2024 Abstract [facility] [address] [place] [address] [place] [phone] Unallocated, Noms Provider, [address] [place], [place] [phone] Social History Tobacco Use Types Packs/Day Years [...] on filedocumented in this encounter Care Teams Bilingual Customer Service Specialist Relationship Specialty Start Date End Date Elian Magallon MD [address] [place] [address] PCP - General Psychiatry 09/22/22 Trevon Holt MD [address] [place], [place] [id number] Referring Physician Internal Medicine 09/02/22 documented as of this encounter
--- OUTSIDE RECORDS SUMMARY | 2024-09-18 07:56 | XMS_ITS | Clinical Summary ---
Author Organization [facility] Address [address] [place] [address], [address] [place] [address] Care Team Providers Care Cold Storage Superintendent Name Role Phone Elian Magallon MD Primary Care Provider [phone] Social History Tobacco Use Types Packs/Day Years Used Date Smoking Tobacco: Never Assessed Comments Unknown Sex and Gender Information Value Date Recorded Sex Assigned at Not on file Legal Sex Female 9:16 PM EST Gender Identity Not on file Sexual Orientation Not on file Plan of Treatment Health Maintenance Due Date Last Done Comments DTaP/Tdap/Td vaccine (1 - Tdap) 1976 COVID-19 Vaccine (2023-2 5 season) 2023 Flu vaccine (#1) 09/27/2024 Respiratory Syncytial Virus (RSV) or age 60 yrs+ (1 - 1-dose 75+ series) 2032 Polio vaccine Aged Out No longer elig ible based on patient's age to complete this topic Insurance MEDICAID [place] Care Teams Cold Storage Superintendent Relationship Specialty Start Date End Date Elian Magallon MD [address] [place] [address] PCP - General Psychiatry 09/09/22
--- OUTSIDE RECORDS SUMMARY | 2024-09-18 07:56 | XMS_ITS | Encounter Summary ---
Author Organization [facility] Address [address] [place] [address] Care Team Providers Care Button Broacher Name Role Phone Trevon Holt MD Unavailable Elian Magallon MD Primary Care Provider Unavailabl e Encounter Details Date Type Department Care Team (Late st Contact Info) Description 07/15/2024 Abstract [facility] [address] [place] [address] [place] [phone] Unallocated, Noms Provider, [address] [place], [place] [phone] Social History Tobacco Use Types Packs/Day Years [...] on filedocumented in this encounter Care Teams Button Broacher Relationship Specialty Start Date End Date Elian Magallon MD [address] [place] [address] PCP - General Psychiatry 09/22/22 Trevon Holt MD [address] [place], [place] [phone] Referring Physician Internal Medicine 09/02/22 documented as of this encounter
--- OUTSIDE RECORDS SUMMARY | 2024-09-18 07:56 | XMS_ITS | Encounter Summary ---
Author Organization [facility] Address [address] [place] [address] Care Team Providers Care Beater Machine Operator Name Role Phone Trevon Holt MD Unavailable Elian Magallon MD Primary Care Provider Unavailabl e Encounter Details Date Type Department Care Team (Late st Contact Info) Description 12/29/2023 Abstract [facility] [address] [place] [address] [place] [phone] Unallocated, Noms Provider, [address] [place], [place] [phone] Social History Tobacco Use Types Packs/Day Years [...] on filedocumented in this encounter Care Teams Beater Machine Operator Relationship Specialty Start Date End Date Elian Magallon MD [address] [place] [address] PCP - General Psychiatry 09/22/22 Trevon Holt MD [address] [place], [place] [phone] Referring Physician Internal Medicine 09/02/22 documented as of this encounter
--- OUTSIDE RECORDS SUMMARY | 2024-09-18 07:56 | XMS_ITS | Clinical Summary ---
Author Organization [facility] Address [address] [place], [place] [address] Care Team Providers Care Vice President Of Academic Affairs Name Role Phone Gaurang Walden MD Primary Care Provider [phone] Active Problems Problem Noted Date Diagnosed Date Shoulder bursitis 11/19/2014 Methicillin resistant pneumo bianka due to Staphylococcus aureus 11/05/2014 Right shoulder pain 11/05/2014 Social History Tobacco Use Types Packs/Day Years Used Date Smoking Tobacco: Never Assessed Comments Unknown Sex and Gender Information Value Date Recorded Sex Assigned at Not on file Legal Sex Female 8:09 AM EST Gender Identity Not on file Sexual Orientation Not on file Last Filed Vital Signs Vital Sign Reading Time Taken Comments Blood Pressure 114/68 11/19/2014 11:16 AM EDT Pulse 85 11/19/2014 11:16 AM EDT Temperature - - Respiratory Rate 18 11/19/2014 11:16 AM EDT Oxygen Saturation 98% 11/05/2014 2:33 PM EDT Inhaled Oxygen Concentration - - Weight - - Height - - Body Mass Index - - Plan of Treatment Health Maintenance Due Date Last Done Comments Anxiety Screening 11/09/1975 Depression Screening 11/09/1975 Hepatitis C Screening 11/09/1975 DTaP,Tdap,Td Vaccine (1 - Tdap) [address] Colonography 2002 Cologuard (FIT-DNA) 2002 Colonoscopy 2002 Colorectal Cancer Screening 2002 Diabetes Screening 2002 Fecal Occult Blood 2002 Lipid Screening 2002 Sigmoidoscopy 2002 Pneumococcal Vaccine: 50+ (1 of 1 - PCV) 11/09/2007 Shingrix Vaccine (1 of 2) 11/09/2007 Bone Density Screening 2022 Covid-19 Vaccine (2023- season) 2023 Advance Directive Discussion 02/28/2024 Influenza Vaccine (#1) 2024 RSV Vaccine (1 - 1-dose 75+ series) 2032 Insurance MEDICAID [place] Care Teams Vice President Of Academic Affairs Relationship Specialty Start Date End Date Gaurang Walden MD [address] [place], [place] [phone] PCP - General Gerontology 11/06/14
--- OUTSIDE RECORDS SUMMARY | 2024-09-18 07:56 | XMS_ITS | Encounter Summary ---
Author Organization [facility] Address [address] [place] [address] Care Team Providers Care Aerial Crop Duster Name Role Phone Trevon Holt MD Unavailable Elian Magallon MD Primary Care Provider Unavailabl e Encounter Details Date Type Department Care Team (Late st Contact Info) Description 07/04/2024 Abstract [facility] [address] [place] [address] [place] [phone] Unallocated, Noms Provider, [address] [place], [place] [address] Social History Tobacco Use Types Packs/Day Years [...] on filedocumented in this encounter Care Teams Aerial Crop Duster Relationship Specialty Start Date End Date Elian Magallon MD [address] [place] [address] PCP - General Psychiatry 09/22/22 Trevon Holt MD [address] [place], [place] [phone] Referring Physician Internal Medicine 09/02/22 documented as of this encounter
--- OUTSIDE RECORDS SUMMARY | 2024-09-18 07:56 | XMS_ITS | Encounter Summary ---
Author Organization [facility] Address [address] [place] [address] Care Team Providers Care Celery Tier Name Role Phone Trevon Holt MD Unavailable Elian Magallon MD Primary Care Provider Unavailabl e Encounter Details Date Type Department Care Team (Late st Contact Info) Description 01/04/2024 Abstract [facility] [address] [place] [address] [place] [phone] Unallocated, Noms Provider, [address] [place], [place] [phone] Social History Tobacco Use Types Packs/Day Years [...] on filedocumented in this encounter Care Teams Celery Tier Relationship Specialty Start Date End Date Elian Magallon MD [address] [place] [address] PCP - General Psychiatry 09/22/22 Trevon Holt MD [address] [place], [place] [phone] Referring Physician Internal Medicine 09/02/22 documented as of this encounter
--- OUTSIDE RECORDS SUMMARY | 2024-09-18 07:56 | XMS_ITS | Encounter Summary ---
Author Organization [facility] Address [address] [place] [address] Care Team Providers Care Transportation Sales Consultant Name Role Phone Trevon Holt MD Unavailable Elian Magallon MD Primary Care Provider Unavailabl e Encounter Details Date Type Department Care Team (Late st Contact Info) Description 07/04/2024 Abstract [facility] [id number] [place] [phone] Unallocated, Noms Provider, [address] [place] [address] Social History Tobacco Use Types Packs/Day Years [...] on filedocumented in this encounter Care Teams Transportation Sales Consultant Relationship Specialty Start Date End Date Elian Magallon MD [address] [place] [address] PCP - General Psychiatry 09/22/22 Trevon Holt MD [address] [place], [place] [phone] Referring Physician Internal Medicine 09/02/22 documented as of this encounter
--- OUTSIDE RECORDS SUMMARY | 2024-09-18 07:56 | XMS_ITS | Encounter Summary ---
Author Organization [facility] Address [address] [place] [address] Care Team Providers Care Construction Craft Laborer Name Role Phone Trevon Holt MD Unavailable Elian Magallon MD Primary Care Provider Unavailabl e Encounter Details Date Type Department Care Team (Late st Contact Info) Description 12/27/2023 Abstract [facility] [address] [place] [address] [place] [phone] Unallocated, Noms Provider, [address] [place], [place] [phone] Social History Tobacco Use Types Packs/Day Years [...] on filedocumented in this encounter Care Teams Construction Craft Laborer Relationship Specialty Start Date End Date Elian Magallon MD [address] [place] [address] PCP - General Psychiatry 09/22/22 Trevon Holt MD [address] [place], [place] [phone] Referring Physician Internal Medicine 09/02/22 documented as of this encounter
--- OUTSIDE RECORDS SUMMARY | 2024-09-18 07:56 | XMS_ITS | Encounter Summary ---
Author Organization [facility] Address [address] [place] [address] Care Team Providers Care Sorter Pricer Name Role Phone Trevon Holt MD Unavailable Elian Magallon MD Primary Care Provider Unavailabl e Encounter Details Date Type Department Care Team (Late st Contact Info) Description 09/05/2022 Abstract [facility] [address] [place] [phone] Milan Chanel, DPM [address] [place], [place] [phone] Social History Tobacco Use Types Packs/Day Years Used Date Smoking Tobacco: Former Cigarettes Tobacco Cessation:Counseling Given: Not Answered Alcohol Use Standard Drinks/Week Comments Never 0 [...] on filedocumented in this encounter Care Teams Sorter Pricer Relationship Specialty Start Date End Date Elian Magallon MD [address] [place] [address] PCP - General Psychiatry 09/22/22 Trevon Holt MD [address] [place], [place] [phone] Referring Physician Internal Medicine 09/02/22 documented as of this encounter
--- OUTSIDE RECORDS SUMMARY | 2024-09-18 07:56 | XMS_ITS | Encounter Summary ---
Author Organization [facility] Address [address] [place] [address] Care Team Providers Care Final Application Reviewer Name Role Phone Trevon Holt MD Unavailable Elian Magallon MD Primary Care Provider Unavailabl e Encounter Details Date Type Department Care Team (Late st Contact Info) Description 03/08/2024 Abstract [facility] [address] [place] [address] [place] [phone] Unallocated, Noms Provider, [address] [place], [place] [phone] Social History Tobacco Use Types Packs/Day Years [...] on filedocumented in this encounter Care Teams Final Application Reviewer Relationship Specialty Start Date End Date Elian Magallon MD [address] [place] [address] PCP - General Psychiatry 09/22/22 Trevon Holt MD [address] [place], [place] [phone] Referring Physician Internal Medicine 09/02/22 documented as of this encounter
--- OUTSIDE RECORDS SUMMARY | 2024-09-18 07:57 | XMS_ITS | Encounter Summary ---
Author Organization [facility] Address [address] [place] [address] Care Team Providers Care Manager Android Name Role Phone Trevon Holt MD Unavailable Elian Magallon MD Primary Care Provider Unavailabl e Encounter Details Date Type Department Care Team (Late st Contact Info) Description 08/15/2024 Abstract [facility] [address] [place] [address] [place] [phone] Unallocated, Noms Provider, [address] [place], [place] [phone] Social History Tobacco Use Types Packs/Day Years [...] on filedocumented in this encounter Care Teams Manager Android Relationship Specialty Start Date End Date Elian Magallon MD [address] [place] [address] PCP - General Psychiatry 09/22/22 Trevon Holt MD [address] [place], [place] [address] Referring Physician Internal Medicine 09/02/22 documented as of this encounter
--- OUTSIDE RECORDS SUMMARY | 2024-09-18 07:57 | XMS_ITS | Encounter Summary ---
Author Organization [facility] Address [address] [place] [address] Care Team Providers Care Manager Java Name Role Phone Trevon Holt MD Unavailable Elain Magallon MD Primary Care Provider Unavailabl e Encounter Details Date Type Department Care Team (Late st Contact Info) Description 04/25/2024 Abstract [facility] [address] [place] [address] [place] [phone] Unallocated, Noms Provider, [address] [place], [place] [phone] Social History Tobacco Use Types Packs/Day Years [...] filedocumented in this encounter Care Teams Manager Java Relationship Specialty Start Date End Date Elian Magallon MD [address] [place] [address] PCP - General Psychiatry 09/22/22 Trevon Holt MD [address] [place], [place] [address] Referring Physician Internal Medicine 09/02/22 documented as of this encounter
--- OUTSIDE RECORDS SUMMARY | 2024-09-18 07:57 | XMS_ITS | Encounter Summary ---
Author Organization [facility] Address [address] [place] [address] Care Team Providers Care Advance Agent Name Role Phone Trevon Holt MD Unavailable Elian Magallon MD Primary Care Provider Unavailabl e Encounter Details Date Type Department Care Team (Late st Contact Info) Description 04/04/2024 Abstract [facility] [address] [address] [place] [phone] Unallocated, Noms Provider, [address] [place], [place] [phone] Social History Tobacco Use Types Packs/Day Years [...] on filedocumented in this encounter Care Teams Advance Agent Relationship Specialty Start Date End Date Elian Magallon MD [address] [place] [address] PCP - General Psychiatry 09/22/22 Trevon Holt MD [address] [place], [place] [phone] Referring Physician Internal Medicine 09/02/22 documented as of this encounter
--- OUTSIDE RECORDS SUMMARY | 2024-09-18 07:57 | XMS_ITS | Clinical Summary ---
Author Organization [facility] Address [address] [place] [address] Care Team Providers Care Log Hauler Name Role Phone Trevon Holt MD Unavailable Elian Magallon MD Primary Care Provider Unavailabl e Medications Acetaminophen Extra Strength 500 MG tabletIndication s:Pain TAKE 1 TABLET BY MOUTH 3 TIMES A DAY 84 tablet 10 07/29/2024 Active Encounters Date Type Department Care Team Description 08/15/2024 Abstract [facility] 110 [place] [address] Unallocated, Theron Jeter MD 08/15/2024 Abstract [facility] [address] [facility] [address] [place] [id number] Unallocated, Theron Jeter MD 07/23/2024 Refill [facility] [address] [facility] [address] [place] [address] Darlene Verma, TELEMETRY TECH Pain (Primary Dx) 07/15/2024 Abstract [facility] [address] [facility] [address] [place] [id number] Unallocated, Theron Jeter MD 07/04/2024 Abstract [facility] [address] [place] [address] Unallocated, Theron Jeter MD 07/04/2024 Abstract [facility] [address] [facility] [address] [place] [id number] Unallocated, Theron Jeter MD from Last 3 Months Family History Medical History Relation Name Comments Lung cancer Mother's Brother Colon cancer Mother's Sister Relation Name Status Comments Mother's Brother Mother's Sister Social History Tobacco Use Types Packs/Day Years [...] Sign Reading Time Taken Comments Blood Pressure 132/80 01/25/2021 12:00 PM EST Pulse - - Temperature - - Respiratory Rate - - Oxygen Saturation - - Inhaled Oxygen Concentration - - Weight 108 kg (238 lb) 06/06/2022 12:00 PM EDT Height 160 cm (5' 3 ) 06/06/2022 12:00 PM EDT Body Mass Index 42.16 06/06/2022 12:00 PM EDT Plan of Treatment Health Maintenance Due Date Last Done Comments CT Colonography 1957 FIT-DNA 1957 FIT 1957 FOBT 1957 Sigmoidoscopy 1957 Mammogram 06/06/2024 06/07/2023, 08/2022, 02/11/2021, Additional history exists Influenza Vaccine (#1) 2024 3, 11/25/2021, 12/17/2012 Colonoscopy 08/26/2032 08/26/2022, 05/13/2019 Colorectal Cancer Screening 08/26/2032 Cervical Cancer Screening Discontinued HPV/Cotest Discontinued 05/24/2022, 12/29, 09/10/2018 Pneumococcal Vaccine: 65+ Years Completed 3, 11/12/2010 Pap Smear Discontinued Procedures Procedure Name Priority Date/Time Associated Diagnosis Comments BI MAMMOGRAM SCREENING TOMOSYNTHESIS BILATERAL Routine 02/11/2021 Encounter for screening mammogram for malignant neoplasm of breast THINPREP TIS PAP REFLEX HPV MRNA E6/E7 (25785) Routine 01/25/2021 from Last 3 Months or Most Recently Relevant to Health Maintenance Results * Bilateral screening mammogram with tomosynthesis (02/11/2021) Anatomical Region Laterality Modality Breast Bilateral Mammography Impressions 02/11/2021 12:00 AM EST BIRADS 2 : BENIGN FINDINGS, NORMAL INTERVAL FOLLOW UP. Board certified radiologist. Accredited by the ACR and FDA. MAMMOGRAPHY IS VERY IMPORTANT TO YOUR HEALTH. CURRENT [employer] GUID[employer]INES RECOMMENDS ANNUAL MAMMOGRAPHY BEGINNING AT AGE 40. THIS FACILITY USUALLY USES A REMINDER SYSTEM TO ENSURE ALL POSITIONS RECEIVED REMINDER NOTIFICATIONS AT THE TIME BASED ON THE RECOMMENDATIONS OF THIS EXAM. Report reported and signed by Milan Lopez on 02/12/2021 1642 Narrative 02/11/2021 12:00 AM EST PERFORMED AT [facility] LOCATION:[facility] CLINICAL HISTORY: Screening Mammogram COMPARISON: None available. TECHNIQUE: 2D and 3D Tomosynthesis of the right and left breasts was performed. FINDINGS: There are scattered fibroglandular densities within each breast, with stable asymmetry and mild nodularity. There are no suspicious masses, areas of suspicious microcalcifications or areas of architectural distortion identified. No evidence of skin thickening. Procedure Note CONVERSION, GENERIC - 09/02/2022 PERFORMED AT [facility] LOCATION:[facility] CLINICAL HISTORY: Screening Mammogram COMPARISON: None available. TECHNIQUE: 2D and 3D Tomosynthesis of the right and left breasts wasperformed. FINDINGS: There are scattered fibroglandular densities within each breast, withstable asymmetry and mild nodularity. There are no suspicious masses, areas of suspicious microcalcifications orareas of architectural distortion identified. No evidence of skin thickening. IMPRESSION: BIRADS 2 : BENIGN FINDINGS, NORMAL INTERVAL FOLLOW UP. Board certified radiologist. Accredited by the ACR and FDA. MAMMOGRAPHY IS VERY IMPORTANT TO YOUR HEALTH. CURRENT [employer] GUIDELINES RECOMMENDS ANNUAL MAMMOGRAPHY BEGINNING AT AGE 40. THIS FACILITY USUALLY USES A REMINDER SYSTEM TO ENSURE ALL POSITIONSRECEIVED REMINDER NOTIFICATIONS AT THE TIME BASED ON THE RECOMMENDATIONS OF THIS EXAM. Report reported and signed by Milan Lopez on 02/12/2021 1642 [facility] PROCEDURES Final Result * THINPREP TIS PAP REFLEX HPV MRNA E6/E7 (52659) (01/25/2021) CLINICAL INFORMATION: Normal exam [facility] LMP: 2,009 [facility] PREV. PAP: 09/10/18 NEGATIVE NO [facility] PREV. BX: NO [facility] SOURCE: Cervix, Endocervix [facility] STATEMENT OF ADEQUACY: SEE COMMENT [facility] Comment: Satisfactory for evaluation. Endocervical/transformation zone component absent. INTERPRETATION /RESULT: Negative for intraepithelial lesion or malignancy. [facility] COMMENT: This Pap test has been evaluated with computer assisted technology. [facility] CYTOTECHNOLOGI ST: SEE COMMENT [facility] Comment: AWAIS ESPANA(ASCP) CT screening location: [place] [address]. COMMENT SEE COMMENT [facility] Comment: EXPLANATORY NOTE: The Pap is a screening test for cervical cancer. It is not a diagnostic test and is subject to false negative and false positive results. It is most reliable when a satisfactory sample, regularly obtained, is submitted with relevant clinical findings and history, and when the Pap result is evaluated along with historic and current clinical information. 01/25/2021 [facility] Final Result [facility] from Last 3 Months or Most Recently Relevant to Health Maintenance Insurance MEDICAID [place] MEDICARE Care Teams Log Hauler Relationship Specialty Start Date End Date Elian Magallon MD [address] [place] [address] PCP - General Psychiatry 09/22/22 Trevon Holt MD [address] [place] [address] Referring Physician Internal Medicine 09/02/22
--- OUTSIDE RECORDS SUMMARY | 2024-09-18 07:57 | XMS_ITS | Encounter Summary ---
Author Organization [facility] Address [address] [place] [address] Care Team Providers Care Merchandise Processor Name Role Phone Trevon Holt MD Unavailable Elian Magallon MD Primary Care Provider Unavailabl e Encounter Details Date Type Department Care Team (Late st Contact Info) Description 04/24/2024 Abstract [facility] [address] [place] [id number] Unallocated, Noms Provider, [address] [place], [place] [id number] Social History Tobacco Use Types Packs/Day Years [...] on filedocumented in this encounter Care Teams Merchandise Processor Relationship Specialty Start Date End Date Elian Magallon MD [address] [place] [address] PCP - General Psychiatry 09/22/22 Trevon Holt MD [address] [place], [place] [id number] Referring Physician Internal Medicine 09/02/22 documented as of this encounter
--- OUTSIDE RECORDS SUMMARY | 2024-09-18 07:57 | XMS_ITS | Encounter Summary ---
Author Organization [facility] Address [address] [place] [address] Care Team Providers Care Local Superintendent Name Role Phone Trevon Holt MD Unavailable Elian Magallon MD Primary Care Provider Unavailabl e Encounter Details Date Type Department Care Team (Late st Contact Info) Description 08/15/2024 Abstract [facility] [address] [place] [phone] Unallocated, Noms Provider, [address] [place], [place] [id number] Social History Tobacco Use Types Packs/Day Years [...] on filedocumented in this encounter Care Teams Local Superintendent Relationship Specialty Start Date End Date Elian Magallon MD [address] [place] [address] PCP - General Psychiatry 09/22/22 Trevon Holt MD [address] [place], [place] [phone] Referring Physician Internal Medicine 09/02/22 documented as of this encounter
[2024-09-18] MEDS: VENLAFAXINE HCL ER 75 MG CAPSULE PO (09:04)
[2024-09-18] MEDS: VENLAFAXINE HCL ER 150 MG CAPSULE PO (09:04)
[2024-09-18] MEDS: FLECAINIDE ACETATE 50 MG TABLET 100 MG PO ×2 (09:04→21:48)
[2024-09-18] MEDS: ACETAMINOPHEN 325 MG TABLET 650 MG PO ×2 (09:04→13:13)
[2024-09-18] MEDS: FUROSEMIDE 20 MG TABLET PO (09:04)
[2024-09-18] MEDS: MAGNESIUM OXIDE 400 MG TABLET PO (09:05)
[2024-09-18] MEDS: LOSARTAN POTASSIUM 25 MG TABLET PO (09:05)
[2024-09-18] MEDS: DIPHENHYDRAMINE HCL 25 MG CAPSULE PO ×2 (09:05→21:48)
[2024-09-18] MEDS: APIXABAN 5 MG TABLET PO ×2 (09:05→21:48)
[2024-09-18] MEDS: METOPROLOL SUCCINATE 25 MG TAB.ER.24H 12.5 MG PO (09:05)
[2024-09-18] MEDS: METHYLPREDNISOLONE SOD SUCC PF 40 MG/ML VIAL IVP ×2 (09:10→21:48)
--- NOTE | 2024-09-18 09:40 | CM.NOTE ---
Rounds made with Dr. Jj, no discharge today. Pt will require continued treatment with possible discharge tomorrow.
[2024-09-18] MEDS: NYSTATIN 15 GM POWDER 1 APPLIC TOPICAL (09:44)
--- NOTE | 2024-09-18 10:24 | PM.PN ---
Progress Note: Subjective Subjective Interval history: Patient seen and examined at bedside. She is -540 mL net balance. Dropped 2 kg. I saw her she seems better than yesterday. Still complains of dizziness and some shortness of breath with exertion. No fever no chills. Labs showing slight SOTO. CBC showed leukocytosis. No nausea no vomiting no diarrhea. Exam Narrative Exam Narrative: Constitutional: no apparent distress, alert and well nourished, anxious, cooperative HENAR Common normals: normocephalic and head/scalp atraumatic Eye Common normals: EOMs intact bilaterally and conjunctivae normal Neck: Supple, no JVD, no lymphadenopathy, no thyromegaly Respiratory Common normals: Decreased bilateral air entry with mild Rales bilaterally. No wheezes. Patient saturating well on room air not using chiller technician muscles. Cardio Common normals: regular rate, regular rhythm, S1 normal heart sound and S2 normal heart sound GI Common normals: Normal to inspection, nondistended, normoactive bowel sounds present, soft to palpation and non-tender Extremity Common normals: normal to inspection and full ROM Neuro Common normals: oriented x3, CN's II-XII intact bilaterally, moves all extremities and no focal motor deficits Psych less anxious than yesterday Constitutional Vital Signs, click to edit/add: Last Vital Signs Temp 97.4 F L 09/18/24 07:38 Pulse 70 09/18/24 10:00 Resp 16 09/18/24 07:38 BP 153/77 H 09/18/24 07:38 Pulse Ox 95 09/18/24 07:38 O2 Del Method Room Air 09/18/24 07:38 O2 Flow Rate 2 09/17/24 07:44 Progress Note: Objective Labs Labs: Short CBC 09/18/24 Range/Units 05:27 WBC 16.3 H (4.0-11.0) 10^3/uL Hgb 12.4 (12.0-16.0) g/dL Hct 38.2 (36.0-48.0) % Plt Count 283 (150-450) 10^3/uL BMP 09/18/24 05:27 Sodium 140 Potassium 4.5 Chloride 100 Carbon Dioxide 28.7 BUN 26.0 H Creatinine 1.14 H Glucose 180 H Calcium 9.7 Liver Function 09/18/24 Range/Units 05:27 Total Bilirubin 0.3 (0.2-1.0) mg/dL AST 10 L (15-37) U/L ALT 23 (14-59) U/L Alkaline Phosphatase 123 H (46-116) U/L Albumin 3.3 L (3.4-5.0) g/dL Progress Note: A&P Assessment and Plan (1) Acute hypoxic respiratory failure: (2) Acute exacerbation of CHF (congestive heart failure): (3) COPD exacerbation: Plan Acute hypoxic respiratory failure in the setting of CHF exacerbation (systolic and diastolic, NYHA class II stage C ) and COPD exacerbation May need higher level of care Anxiety, Schizophrenia, depression SOTO, likely due to dehydration and diuresis - Patient admitted to medical floor 30 - Starting IV Lasix 20 mg twice daily -Daily weights -Strict I/Os - Start methylprednisolone 40 mg every 12 hours - Started DuoNeb treatment 4 times daily - Cardiology consult - Echo pending -May need oxygen assessment on discharge -PT/OT eval -Eliquis for DVT PPx (therapeutic) -Full code -Discussed the plan with the pt. I reconciled her meds from assisted living. I answered her questions 09/18/2024 patient doing better relatively than yesterday. Still having difficulty breathing and dizziness at times. Less anxious than yesterday. Continues on IV steroids and DuoNebs. Appreciate cardiology recommendations I held off on her Lasix and losartan given SOTO today. Have her some normal amount of fluids total of 250 mL of NS and reassess her renal function in a.m. tomorrow. Discussed with her the plan. She understand agrees with this plan of management.
[2024-09-18] MEDS: 0.9 % SODIUM CHLORIDE 1,000 ML 50 ML IV (11:05)
[2024-09-18] MEDS: BUDESONIDE 0.5 MG/2 ML AMPULE NEB IH ×2 (11:13→22:00)
--- NOTE | 2024-09-18 11:15 | PT.DAILY ---
Physical Therapy Daily Note PT Daily Note/Assess Start: 09/18/24 11:11 Freq: Status: Active Protocol: Document 09/18/24 11:11 NELSON (Rec: 09/18/24 11:14 NELSON [id number]) Physical Therapy Daily Note/Assessment Time In/Time Out Time In 10:50 Time Out 11:04 Pain In Pain N/A Pain Out Pain N/A Subjective Subjective Pt sitting in recliner upon arrival. Pt now up ad olu in room - without AD. Therapeutic Exercise Time Therapeutic Exercise 4 Minutes (minutes) Therapeutic Exercise 0 Units Therapeutic Exercise Treatment Therapeutic Exercise Seated bilat LE strengthening ex complete in BS chair Treatment prior to gait/transfers. Occ vc needed to stay on task and for proper form. Therapeutic Activity Time Therapeutic Activity 8 Minutes (minutes) Therapeutic Activity 1 Units Therapeutic Activity Treatment Chair Transfer Independent Ability Therapeutic Activity Sit>stand IND. Pt amb 200' without AD in henao with occ Comments rest breaks for conversation. Pt demonstrates a waddle type gait pattern but no c/o pain. Pt returned to room in BS chair upon completion with call light within reach and needs met. Total Physical Therapy Time Total Therapy 12 Minutes Total Physical 1 Therapy Units Edit Result 09/18/24 11:11 NELSON (Rec: 09/18/24 11:15 NELSON [id number]) Physical Therapy Daily Note/Assessment Summary Daily Note Summary Improved gait endurance without AD. Demonstrates a waddle type gait - no LOB noticed.
--- NOTE | 2024-09-18 12:06 | SWNOTE1 ---
Pt up and ambulatory in hallway without an assistive device. Pt did get emotional and anxious yesterday speaking with her about rehab or home health. Pt is getting physical therapy back at assisted living and she will resume these services at discharge.
[2024-09-18] MEDS: PANTOPRAZOLE SODIUM 40 MG VIAL IV (14:05)
[2024-09-19] VITALS (11 sets, daily range): BP systolic 128–157; BP diastolic 64–82; PULSE 67–86; TEMP 36.6–36.8; O2SAT 91–96
[2024-09-19 05:15] LABS: Hematocrit 35.4 % (36.0-48.0); Hemoglobin 11.4 g/dL (12.0-16.0); Immature Granulocytes Abs Auto 0.13 10^3/uL (0.00-0.03); Immature Granulocytes Pct Auto 0.7 % (0.0-0.5); Lymphocytes Absolute Auto 1.0 10^3/uL (1.2-3.8); Mean Corpuscular HGB Conc 32.2 g/dL (29.9-35.2); Mean Corpuscular Hemoglobin 31.1 pg (26.7-34.0); Mean Corpuscular Volume 96.5 fL (81.0-99.0); Platelet Count 284 10^3/uL (150-450); Red Blood Count 3.67 10^6/uL (4.20-5.40); White Blood Count 18.3 10^3/uL (4.0-11.0)
[2024-09-19] MEDS: IPRATROPIUM/ALBUTEROL SULFATE 3 ML AMPUL.NEB IH ×2 (05:31→11:13)
[2024-09-19 05:34] LABS: Alanine Aminotransferase 21 U/L (14-59); Albumin Globulin Ratio 0.8; Albumin Level 2.9 g/dL (3.4-5.0); Alkaline Phosphatase 108 U/L (46-116); Anion Gap 14.2; Aspartate Amino Transferase 9 U/L (15-37); Blood Urea Nitrogen 26.0 mg/dL (7.0-18.0); Calcium 9.4 mg/dL (8.5-10.1); Carbon Dioxide 28.4 mmol/L (21.0-32.0); Chloride 97 mmol/L (98-107); Estimated GFR (African America 57 (>=60 mL/min/1.73m^2); Estimated GFR (Non-African Ame 47 (>=60 mL/min/1.73m^2); Globulin 3.6 g/dL; Glucose 189 mg/dL (74-106); Magnesium 2.3 mg/dL (1.8-2.4); Potassium 4.6 mmol/L (3.5-5.1); Sodium 135 mmol/L (136-145); Total Protein 6.5 g/dL (6.4-8.2)
[2024-09-19] MEDS: LEVOTHYROXINE SODIUM 25 MCG TABLET 50 MCG PO (06:13)
[2024-09-19] MEDS: VENLAFAXINE HCL ER 150 MG CAPSULE PO (08:21)
[2024-09-19] MEDS: VENLAFAXINE HCL ER 75 MG CAPSULE PO (08:21)
[2024-09-19] MEDS: MAGNESIUM OXIDE 400 MG TABLET PO (08:21)
[2024-09-19] MEDS: FLECAINIDE ACETATE 50 MG TABLET 100 MG PO (08:21)
[2024-09-19] MEDS: APIXABAN 5 MG TABLET PO (08:22)
[2024-09-19] MEDS: METHYLPREDNISOLONE SOD SUCC PF 40 MG/ML VIAL IVP (08:22)
[2024-09-19] MEDS: DIPHENHYDRAMINE HCL 25 MG CAPSULE PO (08:22)
[2024-09-19] MEDS: METOPROLOL SUCCINATE 25 MG TAB.ER.24H 12.5 MG PO (08:22)
--- NOTE | 2024-09-19 09:40 | CM.NOTE ---
Rounds made with Dr. Jj. Plan for discharge to [facility] today. Will needs labs in 3 days-CMP, CBC. Edna at [facility] notified. Lab slip faxed to [phone]--Edna will have their lab company draw on 09/22/24. Follow up appointment with Darlene Verma NP to be on 09/23/24 per Edna at [facility]. Dana in agreement with plan.
--- NOTE | 2024-09-19 09:45 | P.DS_ITS ---
DS: Providers Provider Date of admission: 09/17/24 04:34 Primary care physician: Non-Staff Physician, Consults: 09/17/24 Consult to Script Editor Routine Reason for consult:: Transportation 09/17/24 10:22 Consult to Cardiology Routine Reason for consultation: chf exacerbation 09/17/24 12:38 Occupational Therapy Eval and Treat Routine Reason for consultation: needs higher level of care Physical Therapy Eval and Treat Routine Reason for consultation: needs higher level of care Discharging clinician: Alexander Jj Anticipated date of discharge: 09/19/24 DS: Diagnosis Discharge Diagnosis (1) Acute hypoxic respiratory failure: (2) Acute exacerbation of CHF (congestive heart failure): (3) COPD exacerbation: DS: Summary Hospital Course Hospital Course: Please be aware pt was accepted by night team hospitalist. I am seeing this pt for the first time today after she was admitted. This is a 68 y.o female with past medical Hx of Depression, hypothyroidism, anxiety, Systolic and diastolic CHF, cervicalgia, GERD, Schizophrenia, COPD, here from assisted living. Hx obtained from pt's chart, ED note, and from her even though it was somewhat limited due to her being a poor historian, states that she was trying to clean her house over the last 2 weeks however she has been getting really winded and short of breath easily. She denies any chest pain or nausea or vomiting or diaphoresis. She denies any cough or fever or chills. She was very anxious during encounter stating that she is not able to catch her breath over the last 2 weeks and that has been getting worse. She is not on oxygen. CBC and CMP MP were not significant. proBNP was 540. Troponin x 2 were negative. Chest x-ray was showing mild interstitial edema along with a CT chest with contrast that also showed pulmonary edema. EKG x 2 did not show any acute ischemic changes. Patient did have desaturation to 86-89% on room air and then improved to 95%. Patient was admitted under hospitalist service for further workup and man agement. During the encounter patient was saturating 9% on room air. Not in any respiratory distress but she was anxious. Acute hypoxic respiratory failure in the setting of CHF exacerbation (systolic and diastolic, NYHA class II stage C ) and COPD exacerbation May need higher level of care Anxiety, Schizophrenia, depression SOTO, likely due to dehydration and diuresis - Patient admitted to medical floor 30 - Starting IV Lasix 20 mg twice daily -Daily weights -Strict I/Os - Start methylprednisolone 40 mg every 12 hours - Started DuoNeb treatment 4 times daily - Cardiology consult - Echo pending -May need oxygen assessment on discharge -PT/OT lupe Castañeda for DVT PPx (therapeutic) -Full code -Discussed the plan with the pt. I reconciled her meds from assisted living. I answered her questions 09/18/2024 patient doing better relatively than yesterday. Still having difficulty breathing and dizziness at times. Less anxious than yesterday. Continues on IV steroids and DuoNebs. Appreciate cardiology recommendations I held off on her Lasix and losartan given SOTO today. Have her some normal amount of fluids total of 250 mL of NS and reassess her renal function in a.m. tomorrow. Discussed with her the plan. She understand agrees with this plan of management. 09/19/2024 Pt denies any SOB or dizziness today. Lying in bed, having satisfactory urine output, no acidosis or hyperkalemia on chemistry. CBC still demonstrating leukocytosis with no fever or new exam findings or new symptoms reported by the pt, I think this is solely from steroids. Will dc pt back to rehab, she will need repeat CBC and CMP in 3 days, which I ordered for her. I will send her on 3 more days of prednisone for 3 more days. I discussed the plan with her in details, and answered all her questions. She is seeing her PCP in 4 days. Also held her ARB in light of her slight increase in her creatinine. Time Spent with Patient Time attestation: Total time spent providing and/or coordinating discharge services: Exam Constitutional Vital Signs, click to edit/add: Last Vital Signs Temp 98.2 F 09/19/24 08:27 Pulse 67 09/19/24 08:27 Resp 16 09/19/24 08:27 BP 157/74 H 09/19/24 08:27 Pulse Ox 91 L 09/19/24 08:27 O2 Del Method Room Air 09/19/24 08:27 O2 Flow Rate 2 09/17/24 07:44 DS: Data Data Completed and Pending Labs on day of discharge: Labs from last 24 hours 09/19/24 05:04 WBC 18.3 H RBC 3.67 L Hgb 11.4 L Hct 35.4 L MCV 96.5 MCH 31.1 MCHC 32.2 RDW 13.7 Plt Count 284 MPV 9.8 Neut % (Auto) 92.6 H Lymph % (Auto) 5.7 L [place] % (Auto) 0.9 L Eos % (Auto) 0.0 L Baso % (Auto) 0.1 L Neut # (Auto) 16.9 H Lymph # (Auto) 1.0 L [place] # (Auto) 0.2 L Eos # (Auto) 0.0 Baso # (Auto) 0.0 Abs Immat Gran (auto) 0.13 H Imm/Tot Granulo (auto) 0.7 H Sodium 135 L Potassium 4.6 Chloride 97 L Carbon Dioxide 28.4 Anion Gap 14.2 BUN 26.0 H Creatinine 1.16 H Est GFR ( Amer) 57 L Est GFR (Non-Af Amer) 47 L BUN/Creatinine Ratio 22.4 Glucose 189 H Calcium 9.4 Magnesium 2.3 Total Bilirubin 0.3 AST 9 L ALT 21 Alkaline Phosphatase 108 Total Protein 6.5 Albumin 2.9 L Globulin 3.6 Albumin/Globulin Ratio 0.8 Discharge Plan Discharge Disposition: Xfer SNF Condition: Good Discharge Medications: New prednisone 20 mg tablet 40 mg PO DAILY 3 Days Qty: 6 0RF Continued venlafaxine 75 mg capsule,extended release 24hr 75 mg PO DAILY Rx Instructions: TOTAL DAILY DOSE 225 MG risperidone 4 mg tablet 4 mg PO .QHS ondansetron HCl 4 mg tablet 4 mg PO Q8H PRN (Reason: nausea and vomiting) venlafaxine 150 mg capsule,extended release 24hr 150 mg PO DAILY Rx Instructions: TOTAL DAILY DOSE 225 MG acetaminophen 500 mg tablet 500 mg PO Q8H levothyroxine 50 mcg tablet 50 mcg PO .QD diphenhydramine HCl [Banophen] 25 mg tablet 25 mg PO BID flecainide 100 mg tablet 100 mg PO Q12H docusate sodium 100 mg capsule 100 mg PO .QD PRN (Reason: constipation) furosemide 20 mg tablet 20 mg PO .QD metoprolol succinate 25 mg tablet extended release 24 hr 12.5 mg PO .QD prazosin 2 mg capsule 2 mg PO .QHS magnesium oxide 250 mg magnesium tablet 250 mg PO .QD cholecalciferol (vitamin D3) 50 mcg (2,000 unit) tablet 50 mcg PO .QD Eliquis 5 mg tablet 5 mg PO Q12H albuterol sulfate [Ventolin HFA] 90 mcg/actuation HFA aerosol inhaler 1 inh inhalation Q4H PRN (Reason: shortness of breath or wheezing) diclofenac sodium 1 % gel 2 g topical Q8H PRN (Reason: pain) Rx Instructions: apply to RIB CAGE hydroxyzine HCl 25 mg tablet 25 mg PO Q24H PRN (Reason: anxiety) nystatin [Nyamyc] 100,000 unit/gram powder 1 applic TOPICAL Q8H PRN (Reason: IRRITATION) Rx Instructions: APPLY UNDER BREASTS AND ABDOMINAL FOLDS NEEDED benzonatate 200 mg capsule 200 mg PO Q8H PRN (Reason: cough) tramadol 50 mg tablet 50 mg PO Q6H PRN (Reason: pain) Trelegy Ellipta 100-62.5-25 mcg blister with device 1 inh inhalation DAILY Held valsartan 40 mg tablet 40 mg PO .QD Hold Instructions: hold until you see your PCP loperamide [Anti-Diarrheal (loperamide)] 2 mg tablet 2 mg PO Q6H PRN (Reason: loose stool) Hold Instructions: hold until you see your PCP Print Language: Swiss Activity Restrictions/Additional Instructions: You will need to get a blood work in 3 days, then see [facility] whom you have an appointment with on 09/23/2024. You will need a follow up CT scan of yout chest in 3-6 months, to be determined by your PCP because of some lymph nodes showing up on your CT scan of the chest that was done here. Forms: Portal Instructions Follow Up Appointments: Arlet Verma NP will see patient every Monday at [facility]
[2024-09-19] MEDS: BUDESONIDE 0.5 MG/2 ML AMPULE NEB IH (11:13)
--- NOTE | 2024-09-20 14:35 | CM.DCFOLLOWU ---
Pt is from assisted living.
== END 2024-09-19 14:46 | disposition home or self-care (01) | DRG 291 ==
LOC: ER 09-17 04:01 → MS 09-17 06:29
PROVIDERS: Student in an Organized Health Care Education/Training Program; Admitting Provider Internal Medicine; Emergency Provider Internal Medicine; Visit Provider Internal Medicine
DX: I50.43 Acute on chronic combined systolic (congestive) and diastolic (congestive) heart failure (principal); J96.01 Acute respiratory failure with hypoxia; F33.9 Major depressive disorder, recurrent, unspecified; J44.1 Chronic obstructive pulmonary disease with (acute) exacerbation; N17.9 Acute kidney failure, unspecified; E03.9 Hypothyroidism, unspecified; I87.301 Chronic venous hypertension (idiopathic) without complications of right lower extremity; F41.9 Anxiety disorder, unspecified; K21.9 Gastro-esophageal reflux disease without esophagitis; F25.0 Schizoaffective disorder, bipolar type; F17.200 Nicotine dependence, unspecified, uncomplicated; Z79.890 Hormone replacement therapy; Z79.899 Other long term (current) drug therapy; E86.0 Dehydration; R42 Dizziness and giddiness; Z79.01 Long term (current) use of anticoagulants; T38.0X5A Adverse effect of glucocorticoids and synthetic analogues, initial encounter; D72.829 Elevated white blood cell count, unspecified
CPT/HCPCS: 36415; 71045; 71260; 80048; 80053; 83735; 83880; 84484; 85025; 85378; 93005; 93306; 94640; 94761; 96374; 97161; 97165; 97530; 97535; 99285; J1100; J1938; J2919; Q9967

== ENCOUNTER 2024-09-23 13:46 | Outpatient (REF) | payer MEDICARE, MEDICAID, SELFPAY ==
--- OUTSIDE RECORDS SUMMARY | 2021-11-25 08:00 | XMS_ITS | Continuity of Care Document ---
Author Organization [facility] Address [address] [place] [address] Phone Care Team Providers Care Research Compliance Specialist Name Role Phone Ramu Andersen Unavailable Unavailable Procedures Procedure Date IMMUNIZATION ADMIN FLU VAC NO PRSV 4 ELIZ 3 YRS+ Advance Directives Directive Yes / No Effective Date File Name No Information Encounters Encounter Description Practice Location Reason(s) For Visit Diagnoses Date Provider Providers Copied on Encounter [facility], [address] [place], [place], [id number], tel:[phone] [facility] No Information Elza Starks. [address] [place], [place], [id number], [place]. tel:[phone] Family History Family Member Type Diagnosis Age At Onset No Information Immunizations Vaccine Date Status Comments Flulaval/ Fluarix administered Source: Pr w Immunization Record Payers Payer name Insurance type Covered republican ID Authoriza timariya(s) Medicaid Primary - [facility] [id number] Medicaid Primary - [facility] [id number] Social History Type Description Quantity Date Captured Comments Alcohol Use Details Unknown Caffeine Use Details Unknown Tobacco Use Status No Information Smoking Status No Information Sex Female Sexual Orientation Straight or heterosexual Gender Identity Female Chief Complaint And Reason For Visit No Information Reason For Referral Reason For Referral No Information Plan Of Treatment Date Type Action Status Goal FOBT. Due on due Goal Influenza vaccine. Due on due Goal Depression screening. Due on due Goal Tdap. Due on due Goal Lipid panel. Due on due Goal Mammogram. Due on due Goal Zoster vaccine (1st). Due on due Goal PRAPARE ASSESSMENT. Due on S due Goal Colonoscopy. Due on due History Of Present Illness Encounter Date Complaint History Of Prese nt Illness No Information Functional Status Date Functional Assessmen t No Information Instructions Date Instruction Additional Infor mation No Information Assessments Type Assessment Date No Information Patient Care Teams Name Effective Dates (start - stop) Status Members No Information
--- OUTSIDE RECORDS SUMMARY | 2022-05-06 11:08 | XMS_ITS | Continuity of Care Document ---
Author Organization [facility] Address [address] [place] [address] Care Team Providers Care Computer Systems Administrator Name Role Phone Misty Martin NP Unavailable Unavailable Allergies, Adverse Reactions, Alerts Substance Reaction Status Criticality No Known Allergies Active No Inform ation Medications Medication Instructions Dosage Effective Dates (start - stop) Status Comments RISPERDAL (unknown strength) Not Available - Active IBUPROFEN (unknown strength) Not Available - Active ARTIFICIAL TEARS (unknown strength) Not Available - Active Problems Condition Type Effective Dates (start - stop) Clini harika Status Comments No Known Problems Procedures Procedure Date EYE EXAM & TREATMENT Limited Oral Evaluation-Problem Focused Prophylaxis-Adult Intraoral-Complete Series Of Radiographi c Images Periodic Oral Evaluation-Established Pat ient Advance Directives Directive Yes / No Effective Date File Name No Information Encounters Encounter Description Practice Location Reason(s) For Visit Diagnoses Date Provider Providers Copied on Encounter [facility] [address], [place], [place], [id number], [facility] No Information 3 Veronica Jay. , [place]. [facility] [address], [place], [place], [id number], [facility] Dry eyes (chief complaint)D ecreased vision (chief complaint) Dry eye syndrome of bilateral lacrimal glandsOther secondary cataract, bilateral Nov-201 9 Juan Mcghee. [address] [facility], [address], [place], [place], [id number], [place]. tel:[phone] Referring Provider: Ramu Smith. [address] [place] [address] [address], [place], [place], [id number], [place] [facility] No Information 9 Juan Mcghee. [address] [facility], [address], [place], [place], [id number], [place]. tel:[phone] [place] [address] [address], [place], [place], [id number], [place] [facility] Encounter for dental exam and cleaning w/o abnormal findings 9 Irvin Larsen. [address] [facility], [address], [place], [place], [id number], [place]. tel:[phone] Referring Provider: Ramu Smith. [address] [place] [address] [address], [place], [place], [id number], [facility] Encounter for dental exam and cleaning w/o abnormal findings 9 Normapavel Flor. [address] [facility], [address], [place], [place], [id number], [place]. tel:[phone] Referring Provider: Ramu Smith. Family History Family Member Type Diagnosis Age At Onset No Information Payers Payer name Insurance type Covered alliance party ID Authoriza tion(s) Medicaid [facility] [id number] Social History Type Description Quantity Date Captured Comments Sex Female Smoking Status No Information Chief Complaint And Reason For Visit No Information Reason For Referral Reason For Referral No Information Plan Of Treatment Date Type Action Status Patient Education Dilated Retinal Exam: A bout This Test completed Patient Education Learning About Dental C are and Your H~ completed History Of Present Illness Encounter Date Complaint History Of Prese nt Illness Dry eyes mild, OU, interm ediate, > 6 months, on AT Decreased vision mild, OU, const ant, > 6 months Functional Status Date Functional Assessmen t No Information Instructions Date Instruction Additional Infor jaun Follow up - Return i n 12-15 months for dilated fundus exam. Impression/Plan - Tr izzy PCO OU, will monitor for progression Related to Other secondary cataract, bilateral Impression/Plan - Dr y eye syndrome well controlled with artificial tears; continue bid OU. Educated patient on frequent breaks when reading, scrub eyelids with warm washcloth prn. Related to Dry eye syndrome of bilateral lacrimal glands Assessments Type Assessment Date No Information Patient Care Teams Name Effective Dates (start - stop) Status Members No Information
--- OUTSIDE RECORDS SUMMARY | 2024-02-01 09:15 | XMS_ITS ---
Author Organization [facility] Address [address] [place] [id number] Care Team Providers Care Senior Mobile Developer Name Role Phone Eli Dale Primary Care Provider Fern Quach Unavailable [phone] REASON FOR VISIT 3 month f/u HTN Social History Sex Assigned At : Social History Observation Description Sex Assigned At Female Encounters Encounter Location Date Provider Diagnosis Main [address] [place], [place] [phone] 02/01/2024 Eli Dale Plan Of Treatment Next Appt Details Provider Name:Amelia Boykin sg, 09/25/2024 03:00:00 PM, [address] [place] [address], [phone], Progress Notes * CATHERINE ElviahDOB: [birth year] (68 yo F)Acc No.[id number]:02/01/2024 Medical Note Patient: Dana AMES Provider: JULIA Mcwilliams :1955 A ge:68 Y S ex:Female Date:02/01/2024 Phone: Address:[address] [place], [place] [phone] Subjective: * Chief Complaints: * 1 . 3 month f/u HTN. * Medical History: Objective: * Vitals: Assessment: Plan: * Treatment: * Billing Information: * Visit Code: * Procedure Codes: * Electronic signature of JULIA Mcduffie on 09/23/2024 at 01:50 PM EDT Sign off status: Pending * Provider: JULIA Mcwilliams Date: 1 04/03/2023 Generated for Ventura benjamin/Haley/Kirt on: 0 09/23/2024 01:50 PM EDT
--- OUTSIDE RECORDS SUMMARY | 2024-02-14 08:45 | XMS_ITS ---
Author Organization [facility] Address [address] [place] [phone] Care Team Providers Care Drum Stenciler Name Role Phone Eli Dale Primary Care Provider Fern Quach Unavailable [phone] Amelia Bautista Unavailable [phone] REASON FOR VISIT Rest #18-DO #20-O Social History Sex Assigned At : Social History Observation Description Sex Assigned At Female Encounters Encounter Location Date Provider Diagnosis Dental Main [address] [place] [phone] 02/14/2024 Amelia Bautista Plan Of Treatment Next Appt Details Provider Name:Amelia Boykin ord, 09/25/2024 03:00:00 PM, [address] [place] [address], [phone], Progress Notes * CATHERINE PamwallyhDOB: [birth year] (68 yo F)Acc No.[id number]:02/14/2024 Patient: Dana AMES Provider: Karen Bautista DDS :1955 A ge:68 Y S ex:Female Date:02/14/2024 Phone: Address:[address] [place] [phone] Pcp:Eli Dale Subjective: * Chief Complaints: * 1 . Rest #18-DO #20-O. * Medical History: Objective: * Vitals: Assessment: Plan: * Treatment: * Billing Information: * Visit Code: * Procedure Codes: * Electronic signature of Makayla Bautista DDS on 09/23/2024 at 01:50 PM EDT Sign off status: Pending * Provider: Karen Bautista DDS Date: 1 04/16/2023 Generated for Ventura benjamin/Haley/Kirt on: 0 09/23/2024 01:50 PM EDT
--- OUTSIDE RECORDS SUMMARY | 2024-04-03 06:15 | XMS_ITS ---
Author Organization [facility] Address [address] [place] [phone] Care Team Providers Care Software Configuration Engineer Name Role Phone Eli Dale Primary Care Provider [phone] Fern Quach Unavailable [phone] Amelia Bautista Unavailable [phone] REASON FOR VISIT Rest #18-DO, #20-O Social History Sex Assigned At : Social History Observation Description Sex Assigned At Female Encounters Encounter Location Date Provider Diagnosis Dental Main [address] [place] [phone] 04/03/2024 Amelia Bautista Plan Of Treatment Next Appt Details Provider Name:Amelia Boykin ord, 09/25/2024 03:00:00 PM, [address] [place] [address], [phone], Progress Notes * Elvia ALEXANDERhDOB: [birth year] (68 yo F)Acc No.[id number]:04/03/2024 Patient: Elvia AMESh Provider: Karen Bautista DDS :1955 A ge:68 Y S ex:Female Date:04/03/2024 Phone: Address:[address] [place] [phone] Pcp:Eli Dale Subjective: * Chief Complaints: * 1 . Rest #18-DO, #20-O. * Medical History: Objective: * Vitals: Assessment: Plan: * Treatment: * Billing Information: * Visit Code: * Procedure Codes: * Electronic signature of Makayla Bautista DDS on 09/23/2024 at 01:50 PM EDT Sign off status: Pending * Provider: Karen Bautista DDS Date: 0 04/03/2024 Generated for Ventura benjamin/Haley/Kirt on: 0 09/23/2024 01:50 PM EDT
--- OUTSIDE RECORDS SUMMARY | 2024-09-23 13:50 | XMS_ITS | Encounter Summary ---
Author Organization [facility] Address [address] [address] Care Team Providers Care Park Ranger Name Role Phone Trevon Holt MD Unavailable Elian Magallon MD Primary Care Provider Unavailabl e Encounter Details Date Type Department Care Team (Late st Contact Info) Description 01/04/2024 Abstract [facility] B[facility] [address] [place] [phone] Unallocated, Noms ProviderMD [address] [place] [address] Social History Tobacco Use Types Packs/Day Years [...] on filedocumented in this encounter Care Teams Park Ranger Relationship Specialty Start Date End Date Elian Magallon MD [address] [place] [address] PCP - General Psychiatry 09/22/22 Trevon Holt MD [address] [place], [place] [phone] Referring Physician Internal Medicine 09/02/22 documented as of this encounter
--- OUTSIDE RECORDS SUMMARY | 2024-09-23 13:50 | XMS_ITS | Clinical Summary ---
Author Organization [facility] Address [address] [place] [address], [address] [place] [address] Care Team Providers Care Impregnator Name Role Phone Elian Magallon MD Primary Care Provider [phone] Social History Tobacco Use Types Packs/Day Years [...] this topic Insurance [place]ICAID [place] Care Teams Impregnator Relationship Specialty Start Date End Date Elian Magallon MD [address] [place] [address] PCP - General Psychiatry 09/09/22
--- OUTSIDE RECORDS SUMMARY | 2024-09-23 13:50 | XMS_ITS | Encounter Summary ---
Author Organization [facility] Address [address] [place] [address] Care Team Providers Care Bow Machine Operator Name Role Phone Trevon Holt MD Unavailable Elian Magallon MD Primary Care Provider Unavailabl e Encounter Details Date Type Department Care Team (Late st Contact Info) Description 08/15/2024 Abstract A[facility]HA Brendon [facility] [address] [place] [phone] Unallocated, Noms ProviderMD [address] [place] [address] Social History Tobacco Use Types Packs/Day Years [...] on filedocumented in this encounter Care Teams Bow Machine Operator Relationship Specialty Start Date End Date Elian Magallon MD [address] [place] [address] PCP - General Psychiatry 09/22/22 Trevon Holt MD [address] [place], [place] [phone] Referring Physician Internal Medicine 09/02/22 documented as of this encounter
--- OUTSIDE RECORDS SUMMARY | 2024-09-23 13:50 | XMS_ITS | Encounter Summary ---
Author Organization [facility] Address [address] [place] [address] Care Team Providers Care Activated Sludge Operator Name Role Phone Trevon Holt MD Unavailable Elian Magallon MD Primary Care Provider Unavailabl e Encounter Details Date Type Department Care Team (Late st Contact Info) Description 07/15/2024 Abstract A[facility]HA Brendon [facility] [address] [place] [phone] Unallocated, Noms ProviderMD [address] [place] [address] Social History Tobacco Use Types Packs/Day Years [...] on filedocumented in this encounter Care Teams Activated Sludge Operator Relationship Specialty Start Date End Date Elian Magallon MD [address] [place] [address] PCP - General Psychiatry 09/22/22 Trevon Holt MD [address] [place], [place] [id number] Referring Physician Internal Medicine 09/02/22 documented as of this encounter
--- OUTSIDE RECORDS SUMMARY | 2024-09-23 13:50 | XMS_ITS | Encounter Summary ---
Author Organization [facility] Address [address] [place] [address] Care Team Providers Care Heating Operators Engineer Name Role Phone Trevon Holt MD Unavailable Elian Magallon MD Primary Care Provider Unavailabl e Encounter Details Date Type Department Care Team (Late st Contact Info) Description 07/04/2024 Abstract [facility] [id number] [place] [phone] Unallocated, Noms Provider, [address] [place] [address] Social History Tobacco Use Types Packs/Day Years [...] on filedocumented in this encounter Care Teams Heating Operators Engineer Relationship Specialty Start Date End Date Elian Magallon MD [address] [place] [address] PCP - General Psychiatry 09/22/22 Trevon Holt MD [address] [place], [place] [phone] Referring Physician Internal Medicine 09/02/22 documented as of this encounter
--- OUTSIDE RECORDS SUMMARY | 2024-09-23 13:50 | XMS_ITS | Encounter Summary ---
Author Organization [facility] Address [address] [place] [address] Care Team Providers Care Auto Wheel Alignment Specialist Name Role Phone Trevon Holt MD Unavailable Elian Magallon MD Primary Care Provider Unavailabl e Encounter Details Date Type Department Care Team (Late st Contact Info) Description 12/27/2023 Abstract [facility]elle Brendon [facility] [address] [place] [phone] Unallocated, Noms ProviderMD [address] [place] [address] Social History Tobacco Use Types Packs/Day Years [...] on filedocumented in this encounter Care Teams Auto Wheel Alignment Specialist Relationship Specialty Start Date End Date Elian Magallon MD [address] [place] [address] PCP - General Psychiatry 09/22/22 Trevon Holt MD [address] [place], [place] [phone] Referring Physician Internal Medicine 09/02/22 documented as of this encounter
--- OUTSIDE RECORDS SUMMARY | 2024-09-23 13:50 | XMS_ITS | Encounter Summary ---
Author Organization [facility] Address [address] [place] [address] Care Team Providers Care Audit Analyst Name Role Phone Trevon Holt MD Unavailable Elian Magallon MD Primary Care Provider Unavailabl e Encounter Details Date Type Department Care Team (Late st Contact Info) Description 07/04/2024 Abstract AISHA Brendon [facility] [address] [place] [phone] Unallocated, Noms ProviderMD [address] [place] [address] Social History Tobacco Use Types Packs/Day Years [...] on filedocumented in this encounter Care Teams Audit Analyst Relationship Specialty Start Date End Date Elian Magallon MD [address] [place] [address] PCP - General Psychiatry 09/22/22 Trevon Holt MD [address] [place], [place] [phone] Referring Physician Internal Medicine 09/02/22 documented as of this encounter
--- OUTSIDE RECORDS SUMMARY | 2024-09-23 13:50 | XMS_ITS | Encounter Summary ---
Author Organization [facility] Address [address] [place] [address] Care Team Providers Care Remanufacturing Technician Name Role Phone Trevon Holt MD Unavailable Elian Magallon MD Primary Care Provider Unavailabl e Encounter Details Date Type Department Care Team (Late st Contact Info) Description 04/24/2024 Abstract [facility] [address] [facility] [address] [place] [phone] Unallocated, Noms ProviderMD [address] [place], [place] [phone] Social History Tobacco Use Types Packs/Day Years [...] on filedocumented in this encounter Care Teams Remanufacturing Technician Relationship Specialty Start Date End Date Elian Magallon MD [address] [place] [address] PCP - General Psychiatry 09/22/22 Trevon Holt MD [address] [place], [place] [phone] Referring Physician Internal Medicine 09/02/22 documented as of this encounter
--- OUTSIDE RECORDS SUMMARY | 2024-09-23 13:50 | XMS_ITS | Encounter Summary ---
Author Organization [facility] Address [address] [place] [address] Care Team Providers Care Toy Trains And Accessories Salesperson Name Role Phone Trevon Hlot MD Unavailable Elian Magallon MD Primary Care Provider Unavailabl e Encounter Details Date Type Department Care Team (Late st Contact Info) Description 09/05/2022 Abstract [facility] [address] [place] [phone] Milan Chanel, DPAdam [address] [place], [place] [phone] Social History Tobacco Use Types Packs/Day Years [...] on filedocumented in this encounter Care Teams Toy Trains And Accessories Salesperson Relationship Specialty Start Date End Date Elian Magallon MD [address] [place] [address] PCP - General Psychiatry 09/22/22 Trevon Holt MD [address] [facility] [place] [address] Referring Physician Internal Medicine 09/02/22 documented as of this encounter
--- OUTSIDE RECORDS SUMMARY | 2024-09-23 13:50 | XMS_ITS | Encounter Summary ---
Author Organization [facility] Address [address] [place] [address] Care Team Providers Care Crocheter Name Role Phone Trevon Holt MD Unavailable Elian Magallon MD Primary Care Provider Unavailabl e Encounter Details Date Type Department Care Team (Late st Contact Info) Description 04/04/2024 Abstract AISHA Brendon [facility] [address] [place] [phone] Unallocated, Noms ProviderMD [address] [place] [address] Social History Tobacco Use Types Packs/Day Years [...] on filedocumented in this encounter Care Teams Crocheter Relationship Specialty Start Date End Date Elian Magallon MD [address] [place] [address] PCP - General Psychiatry 09/22/22 Trevon Holt MD [address] [place], [place] [phone] Referring Physician Internal Medicine 09/02/22 documented as of this encounter
--- OUTSIDE RECORDS SUMMARY | 2024-09-23 13:50 | XMS_ITS | Encounter Summary ---
Author Organization [facility] Address [address] [place] [address] Care Team Providers Care Career Placement Specialist Name Role Phone Trevon Holt MD Unavailable Elian Magallon MD Primary Care Provider Unavailabl e Encounter Details Date Type Department Care Team (Late st Contact Info) Description 04/25/2024 Abstract AISHA Brendon [facility] [address] [place] [phone] Unallocated, Noms ProviderMD [address] [place] [address] Social History Tobacco Use Types Packs/Day Years [...] on filedocumented in this encounter Care Teams Career Placement Specialist Relationship Specialty Start Date End Date Elian Magallon MD [address] [place] [address] PCP - General Psychiatry 09/22/22 Trevon Holt MD [address] [place], [place] [id number] Referring Physician Internal Medicine 09/02/22 documented as of this encounter
--- OUTSIDE RECORDS SUMMARY | 2024-09-23 13:50 | XMS_ITS | Encounter Summary ---
Author Organization [facility] Address [address] [place] [address] Care Team Providers Care Pipe Organ Technician Name Role Phone Trevon Holt MD Unavailable Elian Magallon MD Primary Care Provider Unavailabl e Encounter Details Date Type Department Care Team (Late st Contact Info) Description 11/09/2022 Abstract [facility] [address] [facility] [address] [place] [phone] Marion Oleary MD [address] [place] [address] Social History Tobacco Use Types Packs/Day Years [...] on filedocumented in this encounter Care Teams Pipe Organ Technician Relationship Specialty Start Date End Date Elian Magallon MD [address] [place] [address] PCP - General Psychiatry 09/22/22 Trevon Holt MD [address] [place], [place] [phone] Referring Physician Internal Medicine 09/02/22 documented as of this encounter
--- OUTSIDE RECORDS SUMMARY | 2024-09-23 13:50 | XMS_ITS | Encounter Summary ---
Author Organization [facility] Address [address] [place] [address] Care Team Providers Care Editor Magazine Name Role Phone Trevon Holt MD Unavailable Elian Magallon MD Primary Care Provider Unavailabl e Encounter Details Date Type Department Care Team (Late st Contact Info) Description 03/08/2024 Abstract AISHA Brendon [facility] [address] [place] [phone] Unallocated, Noms ProviderMD [address] [place] [address] Social History Tobacco Use Types Packs/Day Years [...] on filedocumented in this encounter Care Teams Editor Magazine Relationship Specialty Start Date End Date Elian Magallon MD [address] [place] [address] PCP - General Psychiatry 09/22/22 Trevon Holt MD [address] [place], [place] [phone] Referring Physician Internal Medicine 09/02/22 documented as of this encounter
--- OUTSIDE RECORDS SUMMARY | 2024-09-23 13:50 | XMS_ITS | Encounter Summary ---
Author Organization [facility] Address [address] [place] [address] [place] [address] Care Team Providers Care Civil Engineering Project Manager Name Role Phone Trevon Holt MD Unavailable Elian Magallon MD Primary Care Provider Unavailabl e Encounter Details Date Type Department Care Team (Late st Contact Info) Description 12/29/2023 Abstract AISHA Brendon [facility] [address] [place] [phone] Unallocated, Noms ProviderMD [address] [place] [address] Social History Tobacco Use Types Packs/Day Years [...] on filedocumented in this encounter Care Teams Civil Engineering Project Manager Relationship Specialty Start Date End Date Elian Magallon MD [address] [place] [address] PCP - General Psychiatry 09/22/22 Trevon Holt MD [address] [place], [place] [phone] Referring Physician Internal Medicine 09/02/22 documented as of this encounter
--- OUTSIDE RECORDS SUMMARY | 2024-09-23 13:50 | XMS_ITS | Clinical Summary ---
Author Organization [facility] Address [address] [place], [place] [id number] Care Team Providers Care Government Employee Name Role Phone Gaurang Walden MD Primary Care Provider [phone] Active Problems Problem Noted Date Diagnosed Date [...] series) 2032 Insurance MEDICAID [place] Care Teams Government Employee Relationship Specialty Start Date End Date Gaurnag Walden MD [address] [place], [place] [id number] PCP - General Gerontology 11/06/14
--- OUTSIDE RECORDS SUMMARY | 2024-09-23 13:50 | XMS_ITS | Encounter Summary ---
Author Organization [facility] Address [address] [place] [address] Care Team Providers Care Private Tutor Name Role Phone Trevon Holt MD Unavailable Elian Magallon MD Primary Care Provider Unavailabl e Encounter Details Date Type Department Care Team (Late st Contact Info) Description 03/08/2024 Abstract AISHA Brendon [facility] [address] [place] [phone] Unallocated, Noms ProviderMD [address] [place] [address] Social History Tobacco Use Types Packs/Day Years [...] on filedocumented in this encounter Care Teams Private Tutor Relationship Specialty Start Date End Date Elian Magallon MD [address] [place] [address] PCP - General Psychiatry 09/22/22 Trevon Holt MD [address] [place], [place] [phone] Referring Physician Internal Medicine 09/02/22 documented as of this encounter
--- OUTSIDE RECORDS SUMMARY | 2024-09-23 13:50 | XMS_ITS | Encounter Summary ---
Author Organization [facility] Address [address] [place] [address] Care Team Providers Care Curing Oven Tender Name Role Phone Trevon Holt MD Unavailable Elian Magallon MD Primary Care Provider Unavailabl e Encounter Details Date Type Department Care Team (Late st Contact Info) Description 08/15/2024 Abstract AISHA Brendon [facility] [address] [place] [phone] Unallocated, Noms ProviderMD [address] [place] [address] Social History Tobacco Use Types Packs/Day Years [...] on filedocumented in this encounter Care Teams Curing Oven Tender Relationship Specialty Start Date End Date Elian Magallon MD [address] [place] [address] PCP - General Psychiatry 09/22/22 Trevon Holt MD [address] [place], [place] [phone] Referring Physician Internal Medicine 09/02/22 documented as of this encounter
--- OUTSIDE RECORDS SUMMARY | 2024-09-23 13:50 | XMS_ITS | Encounter Summary ---
Author Organization [facility] Address [address] [place] [address] Care Team Providers Care Director Of Neurology Name Role Phone Trevon Holt MD Unavailable Elian Magallon MD Primary Care Provider Unavailabl e Encounter Details Date Type Department Care Team (Late st Contact Info) Description 05/30/2024 Abstract AISHA Brendon [facility] [address] [place] [phone] Unallocated, Noms ProviderMD [address] [place] [address] Social History Tobacco Use Types Packs/Day Years [...] on filedocumented in this encounter Care Teams Director Of Neurology Relationship Specialty Start Date End Date Elian Magallon MD [address] [place] [address] PCP - General Psychiatry 09/22/22 Trevon Holt MD [address] [place], [place] [phone] Referring Physician Internal Medicine 09/02/22 documented as of this encounter
--- OUTSIDE RECORDS SUMMARY | 2024-09-23 13:51 | XMS_ITS | Clinical Summary ---
Author Organization [facility] Address [address] [facility] [place] [place] [address] Care Team Providers Care Scout Professional Sports Name Role Phone Trevon Holt MD Unavailable Elian Magallon MD Primary Care Provider Unavailabl e Medications Acetaminophen Extra Strength 500 MG tabletIndication s:Pain TAKE 1 TABLET BY MOUTH 3 TIMES A DAY 84 tablet 10 07/29/2024 Active Encounters Date Type Department Care Team Description 08/15/2024 Abstract [facility] [address] [facility] [address] [place] [address] Unallocated, Edmundos MD Steffany 08/15/2024 Abstract [facility] [address] [facility] [address] [place] [address] Unallocated, Edmundos MD Steffany 07/23/2024 Refill [facility] [address] [place] [address] Darlene Verma, NURSE AIDE Pain (Primary Dx) 07/15/2024 Abstract [facility] [address] [place] [address] Unallocated, Noms MD Steffany 07/04/2024 [facility] [place] [id number] [place] [phone] Unallocated, Noms MD Steffany 07/04/2024 Abstract [facility] [address] [place] [address] Unallocated, Nomchristophe ProviderMD from Last 3 Months Family History Medical [...] FOBT 1955 Sigmoidoscopy 1955 Mammogram 06/06/2024 06/07/2023, 04/0 08/2022, 02/11/2021, Additional history exists Influenza Vaccine [...] THINPREP TIS PAP REFLEX HPV MRNA E6/E7 (71974) Routine 01/25/2021 from Last 3 Months or Most Recently Relevant to Health Maintenance Results * Bilateral screening mammogram with tomosynthesis (02/11/2021) Anatomical Region Laterality Modality Breast Bilateral Mammography Impressions 02/11/2021 12:00 AM EST BIRADS 2 : BENIGN FINDINGS, NORMAL INTERVAL FOLLOW UP. Board certified radiologist. Accredited by the ACR and FDA. MAMMOGRAPHY IS VERY IMPORTANT TO YOUR HEALTH. CURRENT [employer] GUID[employer] RECOMMENDS ANNUAL MAMMOGRAPHY BEGINNING AT AGE 42. THIS FACILITY USUALLY USES A REMINDER SYSTEM TO ENSURE ALL POSITIONS RECEIVED REMINDER NOTIFICATIONS AT THE TIME BASED ON THE RECOMMENDATIONS OF THIS EXAM. Report reported and signed by Milan Lopez on 02/12/2021 1642 Narrative 02/11/2021 12:00 AM EST PERFORMED AT [facility] LOCATION:[facility] CLINICAL HISTORY: Screening Mammogram COMPARISON: None available. TECHNIQUE: 2D and 3D Tomosynthesis of the right and left breasts was performed. FINDINGS: There are scattered fibroglandular densities within each breast, with stable asymmetry and mild nodularity. There are no suspicious masses, areas of suspicious microcalcifications or areas of architectural distortion identified. No evidence of skin thickening. Procedure Note CONVERSION, GENERIC - 09/02/2022 PERFORMED AT [facility] LOCATION:[facility] CLINICAL HISTORY: Screening Mammogram COMPARISON: None available. [...] IS VERY IMPORTANT TO YOUR HEALTH. CURRENT [employer] G[employer]ES RECOMMENDS ANNUAL MAMMOGRAPHY BEGINNING AT AGE 42. THIS FACILITY USUALLY USES A REMINDER SYSTEM TO ENSURE ALL POSITIONSRECEIVED REMINDER NOTIFICATIONS AT THE TIME BASED ON THE RECOMMENDATIONS OF THIS EXAM. Report reported and signed by Milan Lopez on 02/12/2021 1642 [facility] PROCEDURES Final Result * THINPREP TIS PAP REFLEX HPV MRNA E6/E7 ([id number]) (01/25/2021) CLINICAL INFORMATION: Normal exam [facility] [...] SEE COMMENT [facility] Comment: PCJ, SCT(ASCP) CT screening location: [employer] [facility], [address] [place] [address]. COMMENT SEE COMMENT [facility] [...] 01/25/2021 [facility] Final Result Performing Organization Address City/State/[facility] Co de Phone Number [facility] from Last 3 Months or Most Recently Relevant to Health Maintenance Insurance MEDICAID [place] MEDICARE Care Teams Scout Professional Sports Relationship Specialty Start Date End Date Elian Magallon MD [address] [place] [address] PCP - General Psychiatry 09/22/22 Trevon Holt MD [address] [place] [address] Referring Physician Internal Medicine 09/02/22
[2024-09-23 14:05] LABS: Hematocrit 38.1 % (36.0-48.0); Hemoglobin 12.0 g/dL (12.0-16.0); Immature Granulocytes Abs Auto 0.16 10^3/uL (0.00-0.03); Immature Granulocytes Pct Auto 1.3 % (0.0-0.5); Lymphocytes Absolute Auto 2.7 10^3/uL (1.2-3.8); Mean Corpuscular HGB Conc 31.5 g/dL (29.9-35.2); Mean Corpuscular Hemoglobin 31.3 pg (26.7-34.0); Mean Corpuscular Volume 99.2 fL (81.0-99.0); Platelet Count 268 10^3/uL (150-450); Red Blood Count 3.84 10^6/uL (4.20-5.40); White Blood Count 12.3 10^3/uL (4.0-11.0)
== END 2024-09-23 13:47 | disposition home or self-care (01) ==
LOC: LAB 13:46
PROVIDERS: PCP Nurse Practitioner Family; Visit Provider Nurse Practitioner Family
DX: I50.43 Acute on chronic combined systolic (congestive) and diastolic (congestive) heart failure (principal)
CPT/HCPCS: 36415; 85025